=== PATIENT | male | born 1955 | race Caucasian/White ===

== ENCOUNTER 2019-03-26 20:28 | Observation (INO) | payer BC ==
[2019-03-26] MEDS: Aspirin 81 MG Tab.Chew PO ONE (20:49)
--- NOTE | 2019-03-26 20:55 | EDM.PDOC ---
ED HPI GENERAL MEDICAL PROBLEM - General Chief Complaint: General Stated Complaint: bloated, chest tightness Time Seen by Provider: 03/26/19 20:45 Source of Information: Reports: Patient History Limitations: Reports: No Limitations - History of Present Illness INITIAL COMMENTS - FREE TEXT/NARRATIVE: Patient is a 63-year-old gentleman who presents to the emergency department this evening with a complaint of chest pain and shortness of breath. Patient states pain began about 2 p.m. this afternoon. Pain is located midsternal and does not radiate. Pain described as bloating or pressure. Pain has been constant. Patient states that he's had similar symptoms approximately 1-2 times a month for the last 3 months. However this time it seems worse. On the other occasions, it resolved spontaneously in anywhere from 2-4 hours. This time the pain did not resolve. At 1900 today patient took one nitroglycerin sublingual. This did not relieve the pain either. Patient wears CPAP at night with 2 L oxygen flow for sleep apnea. Patient takes losartan for high blood pressure, along with Lasix. 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 He has undergone cardiac catheterization and cardiac stent placed 5 years ago. Patient denies fever, nausea, vomiting, diarrhea, diaphoresis, headache, upper back pain, difficulty swallowing, or lower extremity edema. Onset: Today Onset Date: 03/26/19 Onset Time: 14:00 Duration: Hour(s): Location: Reports: Chest Severity: Moderate Improves with: Reports: None Worsens with: Reports: Other (Lying flat) Associated Symptoms: Reports: Chest Pain, Shortness of Breath. Denies: Cough, cough w sputum, Diaphoresis, Fever/Chills, Nausea/Vomiting Treatments WINDER FIXER: Reports: Nitroglycerin Mid-Sternal Chest Pain Score (Numeric/FACES): 10 - Related Data Allergies Allergy/AdvReac Type Severity Reaction Status Date / Time No Known Drug Allergies Allergy Cannot Verified 03/26/19 20:55 Remember Home Meds: Home Meds Albuterol [Ventolin HFA] 1 puff INH Q4H PRN 03/26/19 [History] Fluticasone/Salmeterol [Advair 250-50 Diskus] 1 inh INH BID 03/26/19 [History] Furosemide 40 mg PO DAILY 03/26/19 [History] Losartan Potassium 25 mg PO DAILY 03/26/19 [History] Nitroglycerin [Nitrostat] 0.4 mg SL ASDIRECTED PRN 03/26/19 [History] Pravastatin [Pravachol] 20 mg PO DAILY 03/26/19 [History] ED ROS GENERAL - Review of Systems Review Of Systems: See Below Constitutional: Reports: No Symptoms HEENT: Reports: No Symptoms Respiratory: Reports: Shortness of Breath Cardiovascular: Reports: Chest Pain Endocrine: Reports: No Symptoms GI/Abdominal: Reports: Abdominal Pain (Intermittent) : Reports: No Symptoms Musculoskeletal: Reports: No Symptoms Skin: Reports: No Symptoms Neurological: Reports: No Symptoms Psychiatric: Reports: No Symptoms Hematologic/Lymphatic: Reports: No Symptoms Immunologic: Reports: No Symptoms ED EXAM, GENERAL - Physical Exam Exam: See Below Exam Limited By: No Limitations General Appearance: Alert, WD/WN, No Apparent Distress Eye Exam: Bilateral Eye: Normal Inspection Nose: Normal Inspection, Normal Mucosa, No Blood Throat/Mouth: Normal Inspection, Normal Oropharynx, No Airway Compromise Head: Atraumatic, Normocephalic Neck: Normal Inspection, Supple Respiratory/Chest: No Respiratory Distress, Decreased Breath Sounds (Bibasilar) Cardiovascular: Regular Rate, Rhythm, No Murmur GI/Abdominal: Normal Bowel Sounds, Non-Tender, No Abnormal Bruit, Other ( Abdominal obesity) Back Exam: Normal Inspection. No: CVA Tenderness (L), CVA Tenderness (R) Extremities: Normal Inspection, No Pedal Edema Neurological: Alert, Oriented, Normal Cognition Psychiatric: Normal Affect, Normal Mood Skin Exam: Warm, Dry, Intact, Normal Color, No Rash Lymphatic: No Adenopathy EKG INTERPRETATION EKG Date: 03/26/19 Time: 21:15 Rate (Beats/Min): 88 [place]: LAD-Left [place] Deviation QRS: RBBB Comparison: NA - No Prior EKG EKG Interpretation Comments: Right bundle-branch block Course - Vital Signs Last Recorded V/S: Last Vital Signs Temp 96.0 F 03/26/19 20:28 Pulse 79 03/26/19 21:51 Resp 28 H 03/26/19 20:28 BP 196/106 H 03/26/19 21:51 Pulse Ox 94 L 03/26/19 20:55 - Orders/Labs/Meds Orders: Active Orders 24 hr Category Date Time Status EKG Documentation Completion [RC] ASDIRECTED Care 03/26/19 20:46 Ordered Chest 1V Frontal [CR] Stat Exams 03/26/19 20:45 Ordered Chest w Cont [CT] Stat Exams 03/26/19 21:57 Ordered Sodium Chloride 0.9% [Normal Saline] 50 ml Med 03/26/19 22:30 Active IV ASDIRECTED EKG 12 Lead [EK] Routine Ther 03/26/19 20:45 Ordered Medication Orders Sodium Chloride (Normal Saline) 50 mls @ 200 mls/min IV ASDIRECTED NIMCO Last Admin: 03/26/19 22:22 Dose: 200 mls/min Labs: Laboratory Tests 03/26/19 03/26/19 03/26/19 Range/Units 20:40 20:40 20:40 WBC 9.44 (5.00-10.00) 10^3/uL RBC 5.17 (4.50-6.00) 10^6/uL Hgb 16.4 (13.0-17.0) g/dL Hct 47.0 (40.0-52.0) % MCV 90.9 (82.0-92.0) fL MCH 31.7 H (27.0-31.0) pg MCHC 34.9 (32.0-36.0) g/dL RDW 12.6 (11.5-14.5) % Plt Count 271 (150-400) 10^3/uL MPV 9.8 (7.4-10.4) fL Immature Gran % (Auto) 0.3 (0.0-5.0) % Neut % (Auto) 85.9 H (50.0-70.0) % Lymph % (Auto) 7.7 L (20.0-40.0) % [place] % (Auto) 5.1 (2.0-8.0) % Eos % (Auto) 0.6 L (1.0-3.0) % Baso % (Auto) 0.4 (0.0-1.0) % Immature Gran # (Auto) 0.03 (0.00-0.50) 10^3/uL Neut # (Auto) 8.10 H (2.50-7.00) 10^3/uL Lymph # (Auto) 0.73 L (1.00-4.00) 10^3/uL [place] # (Auto) 0.48 (0.10-0.80) 10^3/uL Eos # (Auto) 0.06 L (0.10-0.30) 10^3/uL Baso # (Auto) 0.04 (0.00-0.10) 10^3/uL PT 9.0 (8.9-11.4) SEC INR 0.9 (0.9-1.1) APTT 26.4 (23.1-31.3) SEC D-Dimer, Quantitative 158 (<400) ng/mL Sodium 140 (136-145) mmol/L Potassium 4.2 (3.3-5.3) mmol/L Chloride 98 (98-115) mmol/L Carbon Dioxide 29.3 (21.0-32.0) mmol/L Anion Gap 16.9 H (5-15) mmol/L BUN 14 (6-25) mg/dL Creatinine 0.99 (0.51-1.17) mg/dL Est Cr Clr Drug Dosing 82.74 mL/min Estimated GFR (MDRD) > 60 mL/min Glucose 156 H (75 - 99) mg/dL Calcium 9.7 (8.7-10.3) mg/dL Magnesium 1.9 (1.8-2.4) mg/dL Total Bilirubin 0.3 (0.2-1.0) mg/dL AST 26 (15-37) U/L ALT 56 (12-78) U/L Alkaline Phosphatase 129 H (46-116) IU/L CK-MB (CK-2) 1.90 (0.00-4.30) ng/mL Troponin I 0.07 (0.00-0.070) ng/mL B-Natriuretic Peptide 66 (0-100) pg/mL Total Protein 7.6 (6.4-8.2) g/dL Albumin 3.84 (3.00-4.80) g/dL Lipase 60 L (73-393) U/L Meds: Medications Generic Name Dose Route Start Last Admin Trade Name Freq PRN Reason Stop Dose Admin Sodium Chloride 50 mls @ 200 mls/min 03/26/19 22:30 03/26/19 22:22 Normal Saline IV 200 mls/min ASDIRECTED NIMCO Administration Discontinued Medications Generic Name Dose Route Start Last Admin Trade Name Freq PRN Reason Stop Dose Admin Al Hydroxide/Mg Hydroxide 45 ml 03/26/19 22:48 Gi Cocktail PO 03/26/19 22:49 ONETIME ONE Aspirin 324 mg 03/26/19 20:47 03/26/19 20:49 Aspirin PO 03/26/19 20:48 324 mg ONETIME ONE Administration Iopamidol 100 ml 03/26/19 22:17 03/26/19 22:22 Isovue-370 (76%) IV 03/26/19 22:18 100 ml ONETIME ONE Administration Metoclopramide HCl 10 mg 03/26/19 22:35 03/26/19 22:41 Reglan IVPUSH 03/26/19 22:36 10 mg ONETIME ONE Administration Metoprolol Tartrate 5 mg 03/26/19 21:15 03/26/19 21:22 Lopressor IVPUSH 03/26/19 21:16 5 mg ONETIME ONE Administration Metoprolol Tartrate 5 mg 03/26/19 21:40 03/26/19 21:51 Lopressor IVPUSH 03/26/19 21:41 5 mg ONETIME ONE Administration - Radiology Interpretation Free Text/Narrative:: Chest x-ray shows marked cardiomegaly. Concern for thoracic aneurysm. Radiology read for left hemidiaphragm and retrocardiac region obscured and suspicion for infection or pneumonitis. No mention of thoracic aneurysm. CT chest with IV contrast shows normal thoracic aorta with no aneurysm. - Re-Assessments/Exams Free Text/Narrative Re-Assessment/Exam: 03/26/19 22:[address] Flynn, thoracic surgeon at [facility]. Suggested CT with IV contrast for evaluation. Patient afebrile, vital signs stable, blood pressure 168/95 after 2 doses of 5 mg metoprolol IV. Patient states chest discomfort somewhat relieved. Discussed case with Dr. Manish staton. Patient will be admitted for observation and followed. 03/26/19 22:53 Departure - Departure Time of Disposition: 22:54 Disposition: Refer to Observation Condition: Fair Clinical Impression: Shortness of breath Hypertension Qualifiers: Hypertension type: unspecified Qualified Code(s): I10 - Essential (primary) hypertension - Discharge Information Forms: ED Department Discharge - My Orders Last 24 Hours: My Active Orders 03/26/19 20:45 Chest 1V Frontal [CR] Stat EKG 12 Lead [EK] Routine 03/26/19 20:46 EKG Documentation Completion [RC] ASDIRECTED 03/26/19 21:57 Chest w Cont [CT] Stat 03/26/19 22:30 Sodium Chloride 0.9% [Normal Saline] 50 ml IV ASDIRECTED - Assessment/Plan Last 24 Hours: My Active Orders 03/26/19 20:45 Chest 1V Frontal [CR] Stat EKG 12 Lead [EK] Routine 03/26/19 20:46 EKG Documentation Completion [RC] ASDIRECTED 03/26/19 21:57 Chest w Cont [CT] Stat 03/26/19 22:30 Sodium Chloride 0.9% [Normal Saline] 50 ml IV ASDIRECTED Assessment:: Hypertension Plan: Admit observation
[2019-03-26] MEDS: Metoprolol Tartrate 5 MG/5 ML SDV IVPUSH ONE ×2 (21:22→21:51)
[2019-03-26 21:36] LABS: ANION GAP 16.9 mmol/L (5-15); CHLORIDE,CL 98 mmol/L (98-115); SODIUM,NA 140 mmol/L (136-145)
[2019-03-26] MEDS: Sodium Chloride 0.9% 50 ML IV SCH (22:22)
[2019-03-26] MEDS: Iopamidol 755 Mg/ML 100 ML Bottle IV ONE (22:22)
[2019-03-26] MEDS: Metoclopramide 10 MG/2 ML SDV IVPUSH ONE (22:41)
[2019-03-26] MEDS: GI Cocktail 45 ML BOTTLE PO ONE (22:56)
[2019-03-27] MEDS ORDERED: Nitroglycerin 0.4 MG Tab.SL SL PRN (00:32)
[2019-03-27] MEDS ORDERED: Albuterol 8 GM Inhaler INH PRN (00:32)
[2019-03-27] MEDS ORDERED: Labetalol 100 MG/20 ML MDV IVPUSH PRN (00:35)
--- NOTE | 2019-03-27 07:33 | CR ---
[id number] RAD/RAD Chest PA or AP 1V Exam: RAD Chest PA or AP 1V Indication:CHEST PAIN Comparison: No prior imaging for comparison. Discussion: Obscuration of the left hemidiaphragm. Finding is nonspecific but can be seen with small effusion and atelectasis or developing pneumonia. Correlate with site of pain. Cardiomegaly and central vascular congestion. Right lung is clear. Impression: As above. Job Muniz MD 03/27/19 0732 Thank you for allowing us to participate in the care of your patient.
--- NOTE | 2019-03-27 07:40 | CT ---
[id number] CT/CT Chest W IV EXAM: CT Chest W IV CLINICAL DATA: CHEST PAIN COMPARISON: Radiograph from today. FINDINGS: LUNGS: Clear. No pneumothorax or effusion. No endobronchial lesions. HEART AND GREAT VESSELS: Thoracic aorta is normal in caliber. No dissection. Cardiomegaly with coronary artery atherosclerosis. No pericardial effusion. Central vascular congestion. MEDIASTINUM AND LYMPHATICS: No mediastinal or hilar lymphadenopathy. UPPER ABDOMINAL ORGANS: Diffuse hepatic steatosis. Cholelithiasis with a stone at the neck of the gallbladder. Gallbladder is mildly distended with possible mild wall thickening. Other structures are unremarkable. BONES: Scattered changes of spondylosis in the spine. No fracture or osseous lesion. IMPRESSION: Cardiomegaly with coronary artery atherosclerosis. Central vascular congestion, including dilation of the main pulmonary arteries. Diffuse hepatic steatosis and cholelithiasis. Correlate with LFTs to exclude underlying cholecystitis, as there is possible mild wall thickening of the gallbladder. Job Muniz MD 03/27/19 0739 Thank you for allowing us to participate in the care of your patient.
[2019-03-27] MEDS: Furosemide 40 MG Tab PO SCH (08:50)
[2019-03-27] MEDS: Losartan 25 MG Tab PO SCH (08:50)
[2019-03-27] MEDS: Fluticasone/Salmeterol 250-50 MCG Inhalation Powder 14/Diskus INH SCH (08:51)
[2019-03-27] MEDS: Pravastatin 20 MG Tab PO SCH (09:21)
[2019-03-27 11:40] VITALS: BP 128/65; PULSE 79
--- NOTE | 2019-03-27 11:56 | PCM.HP.2 ---
H&P History of Present Illness - General Date of Service: 03/27/19 Admit Problem/Dx: Admission Diagnosis/Problem Admission Diagnosis/Problem Hypertension Source of Information: Patient, Family, Old Records, Provider History Limitations: Reports: No Limitations - History of Present Illness Initial Comments - Free Text/Narative: Mr. Dillard Mid-Sternal Chest Pain Score (Numeric/FACES): 10 - Related Data Allergies/Adverse Reactions: Allergies Allergy/AdvReac Type Severity Reaction Status Date / Time No Known Drug Allergies Allergy Cannot Verified 03/26/19 20:55 Remember Home Medications: Home Meds Albuterol [Ventolin HFA] 1 puff INH Q4H PRN 03/26/19 [History] Fluticasone/Salmeterol [Advair 250-50 Diskus] 1 inh INH BID 03/26/19 [History] Furosemide 40 mg PO DAILY 03/26/19 [History] Losartan Potassium 25 mg PO DAILY 03/26/19 [History] Pravastatin [Pravachol] 20 mg PO DAILY 03/26/19 [History] Aspirin [Low Dose Aspirin EC] 81 mg PO DAILY #90 tablet.dr 03/27/19 [Rx] Nitroglycerin [Nitrostat] 0.4 mg SL ASDIRECTED PRN #25 tab.sl 03/27/19 [Rx] Past Medical History HEENT History: Reports: Cataract, Hard of Hearing Other HEENT History: cataracts on both eyes Cardiovascular History: Reports: Hypertension, [place], SOB on Exertion, Stents Other Cardiovascular History: "small heart attack around 2013 with stent placed " Respiratory History: Reports: COPD, Pneumonia, Recurrent, Sleep Apnea Musculoskeletal History: Reports: Arthritis Endocrine/Metabolic History: Reports: Obesity/BMI 30+ Other Dermatologic History: sores on bilateral arms - Infectious Disease History Infectious Disease History: Reports: Chicken Pox, Measles - Past Surgical History HEENT Surgical History: Reports: Tonsillectomy Social & Family History - Family History Cardiac: Reports: CAD Neurological: Reports: Alzheimers Disease - Tobacco Use Smoking Status *Q: Former Smoker Years of Tobacco use: 45 Used Tobacco, but Quit: No - Caffeine Use Caffeine Use: Reports: Coffee - Alcohol Use Days Per Week of Alcohol Use: 2 Number of Drinks Per Day: 0 Total Drinks Per Week: 0 - Recreational Drug Use Recreational Drug Use: No H&P Review of Systems - Review of Systems: Review Of Systems: See Below General: Denies: Fever, Chills, Malaise, Weakness, Fatigue, Night Sweats, Decreased Appetite HEENT: Denies: Ear Pain, Eye Pain, Sinus Congestion, Sore Throat Pulmonary: Reports: Shortness of Breath (with exertion for several months). Denies: Wheezing, Pleuritic Chest Pain, Cough, Sputum Cardiovascular: Reports: Dyspnea on Exertion. Denies: Chest Pain, Palpitations , Orthopnea, PND, Edema, Syncope, Claudication Gastrointestinal: Reports: Abdominal Pain (epigastric after eating), Hematochezia. Denies: Black Stool, Bloody Stool, Constipation, Diarrhea, Melena , Nausea, Vomiting Genitourinary: Denies: Dysuria, Frequency, Burning, Pain Musculoskeletal: Denies: Neck Pain, Shoulder Pain, Back Pain Skin: Denies: Cyanosis, Jaundice, Rash Psychiatric: Denies: Confusion, Depression, Anxiety Neurological: Denies: Headache, Numbness, Syncope, Tingling Exam - Exam Exam: See Below - Vital Signs Vital Signs: Last Vital Signs Temp 36.1 C 03/27/19 11:37 Pulse 79 03/27/19 11:37 Resp 20 03/27/19 11:37 BP 128/65 03/27/19 11:37 Pulse Ox 91 L 03/27/19 11:37 Weight: 149.884 kg - Exam Physical Exam Comments:: GENERAL: Well-appearing morbidly obese adult white male lying in hospital bed in no acute distress. at bedside. HEENT: Normocephalic, atraumatic. Conjunctiva clear. Nares patent without discharge. Mucous membranes moist, posterior pharynx unremarkable. NECK: Supple, no masses. CV: Regular rate and rhythm, no murmurs, rubs, or gallops. 2+ radial pulses. PULMONARY: Normal effort, clear to auscultation bilaterally, no wheezes, rales, or rhonchi. ABDOMEN: Significantly obese, positive bowel sounds, soft, nontender, nondistended. EXTREMITIES: No edema, cyanosis, or clubbing. MUSCULOSKELETAL: Moves all extremities well. NEUROLOGICAL: No obvious deficits. DERMATOLOGIC: No rashes or suspicious lesions in exposed areas. PSYCHIATRIC: Alert, interactive, appropriate affect. - Patient Data Lab Results Last 24 hrs: Laboratory Results - last 24 hr 03/26/19 03/26/1903/26/19 Range/Units 20:40 20:40 20:40 WBC 9.44 (5.00-10.00) 10^3/uL RBC 5.17 (4.50-6.00) 10^6/uL Hgb 16.4 (13.0-17.0) g/dL Hct 47.0 (40.0-52.0) % MCV 90.9 (82.0-92.0) fL MCH 31.7 H (27.0-31.0) pg MCHC 34.9 (32.0-36.0) g/dL RDW 12.6 (11.5-14.5) % Plt Count 271 (150-400) 10^3/uL MPV 9.8 (7.4-10.4) fL Immature Gran % (Auto) 0.3 (0.0-5.0) % Neut % (Auto) 85.9 H (50.0-70.0) % Lymph % (Auto) 7.7 L (20.0-40.0) % [place] % (Auto) 5.1 (2.0-8.0) % Eos % (Auto) 0.6 L (1.0-3.0) % Baso % (Auto) 0.4 (0.0-1.0) % Immature Gran # (Auto) 0.03 (0.00-0.50) 10^3/uL Neut # (Auto) 8.10 H (2.50-7.00) 10^3/uL Lymph # (Auto) 0.73 L (1.00-4.00) 10^3/uL [place] # (Auto) 0.48 (0.10-0.80) 10^3/uL Eos # (Auto) 0.06 L (0.10-0.30) 10^3/uL Baso # (Auto) 0.04 (0.00-0.10) 10^3/uL PT 9.0 (8.9-11.4) SEC INR 0.9 (0.9-1.1) APTT 26.4 (23.1-31.3) SEC D-Dimer, Quantitative 158 (<400) ng/mL Sodium 140 (136-145) mmol/L Potassium 4.2 (3.3-5.3) mmol/L Chloride 98 (98-115) mmol/L Carbon Dioxide 29.3 (21.0-32.0) mmol/L Anion Gap 16.9 H (5-15) mmol/L BUN 14 (6-25) mg/dL Creatinine 0.99 (0.51-1.17) mg/dL Est Cr Clr Drug Dosing 82.74 mL/min Estimated GFR (MDRD) > 60 mL/min Glucose 156 H (75 - 99) mg/dL Calcium 9.7 (8.7-10.3) mg/dL Magnesium 1.9 (1.8-2.4) mg/dL Total Bilirubin 0.3 (0.2-1.0) mg/dL AST 26 (15-37) U/L ALT 56 (12-78) U/L Alkaline Phosphatase 129 H (46-116) IU/L CK-MB (CK-2) 1.90 (0.00-4.30) ng/mL Troponin I 0.07 (0.00-0.070) ng/mL B-Natriuretic Peptide 66 (0-100) pg/mL Total Protein 7.6 (6.4-8.2) g/dL Albumin 3.84 (3.00-4.80) g/dL Lipase 60 L (73-393) U/L 03/27/19 03/27/19 Range/Units 05:40 08:49 WBC (5.00-10.00) 10^3/uL RBC (4.50-6.00) 10^6/uL Hgb (13.0-17.0) g/dL Hct (40.0-52.0) % MCV (82.0-92.0) fL MCH (27.0-31.0) pg MCHC (32.0-36.0) g/dL RDW (11.5-14.5) % Plt Count (150-400) 10^3/uL MPV (7.4-10.4) fL Immature Gran % (Auto) (0.0-5.0) % Neut % (Auto) (50.0-70.0) % Lymph % (Auto) (20.0-40.0) % [place] % (Auto) (2.0-8.0) % Eos % (Auto) (1.0-3.0) % Baso % (Auto) (0.0-1.0) % Immature Gran # (Auto) (0.00-0.50) 10^3/uL Neut # (Auto) (2.50-7.00) 10^3/uL Lymph # (Auto) (1.00-4.00) 10^3/uL [place] # (Auto) (0.10-0.80) 10^3/uL Eos # (Auto) (0.10-0.30) 10^3/uL Baso # (Auto) (0.00-0.10) 10^3/uL PT (8.9-11.4) SEC INR (0.9-1.1) APTT (23.1-31.3) SEC D-Dimer, Quantitative (<400) ng/mL Sodium (136-145) mmol/L Potassium (3.3-5.3) mmol/L Chloride (98-115) mmol/L Carbon Dioxide (21.0-32.0) mmol/L Anion Gap (5-15) mmol/L BUN (6-25) mg/dL Creatinine (0.51-1.17) mg/dL Est Cr Clr Drug Dosing mL/min Estimated GFR (MDRD) mL/min Glucose (75 - 99) mg/dL Calcium (8.7-10.3) mg/dL Magnesium (1.8-2.4) mg/dL Total Bilirubin (0.2-1.0) mg/dL AST (15-37) U/L ALT (12-78) U/L Alkaline Phosphatase (46-116) IU/L CK-MB (CK-2) (0.00-4.30) ng/mL Troponin I 0.33 H* 0.26 H* (0.00-0.070) ng/mL B-Natriuretic Peptide (0-100) pg/mL Total Protein (6.4-8.2) g/dL Albumin (3.00-4.80) g/dL Lipase (73-393) U/L Result Diagrams: 03/26/19 20:40 03/26/19 20:40 Problem List Initiated/Reviewed/Updated: Yes Orders Last 24hrs: Active Orders 24 hr Category Date Time Status Patient Status [ADT] Routine ADT 03/26/19 22:56 Active Activity as Tolerated [RC] .Routine Care 03/27/19 00:31 Active EKG Documentation Completion [RC] ASDIRECTED Care 03/26/19 20:46 Active EKG Documentation Completion [RC] ASDIRECTED Care 03/27/19 06:33 Active Oxygen Therapy [RC] PRN Care 03/26/19 22:56 Active Telemetry Monitoring [Cardiac Monitoring] [RC] 0300, Care 03/27/19 00:31 Active 0700,1100,1500,1900,2300 VTE/DVT Education [RC] PER UNIT ROUTINE Care 03/26/19 22:56 Active Vital Signs [RC] 0300,0700,1100,1500,1900,2300 Care 03/26/19 22:56 Active Fluticasone/Salmeterol [Advair Diskus 250-50] Med 03/27/19 09:00 Active 1 puff INH BID Furosemide [Lasix] Med 03/27/19 09:00 Active 40 mg PO DAILY Labetalol [Normodyne] Med 03/27/19 00:35 Active 20 mg IVPUSH Q1H PRN Losartan [Cozaar] Med 03/27/19 09:00 Active 50 mg PO DAILY Nitroglycerin [Nitrostat] Med 03/27/19 00:32 Active 0.4 mg SL ASDIRECTED PRN Pravastatin [Pravachol] Med 03/27/19 09:00 Active 20 mg PO DAILY Sodium Chloride 0.9% [Normal Saline] 50 ml Med 03/26/19 22:30 Active IV ASDIRECTED Resuscitation Status Routine Resus Stat 03/26/19 22:56 Ordered Medication Orders Furosemide (Lasix) 40 mg PO DAILY [facility] Last Admin: 03/27/19 08:50 Dose: 40 mg Sodium Chloride (Normal Saline) 50 mls @ 200 mls/min IV ASDIRECTED NIMCO Last Admin: 03/26/19 22:22 Dose: 200 mls/min Labetalol HCl (Normodyne) 20 mg IVPUSH Q1H PRN; Protocol PRN Reason: SBP >170 or DBP >110 Losartan Potassium (Cozaar) 50 mg PO DAILY [facility] Last Admin: 03/27/19 08:50 Dose: 50 mg Nitroglycerin (Nitrostat) 0.4 mg SL ASDIRECTED PRN PRN Reason: Chest Pain Pravastatin Sodium (Pravachol) 20 mg PO DAILY [facility] Last Admin: 03/27/19 09:21 Dose: Fluticasone/Salmeterol (Advair Diskus 250-50) 1 puff INH BID [facility] Last Admin: 03/27/19 08:51 Dose: 1 puff Assessment/Plan Comment:: HPI summary: ED course: Hospital course: Hospitalization problems and plan: # Chronic, stable conditions: # Hospitalization details: # FEN: No IVF. Electrolytes normal. # PPX: N/A given <24hr stay. # Code status: FULL. # Emergency contact: , who was updated at bedside. # Disposition: Admitted to observation status; discharge to home.
--- NOTE | 2019-03-27 12:14 | PCM.DCSUM1 ---
Discharge Summary - Hospital Course Free Text/Narrative:: Date of admission: Date of discharge: Admission diagnoses: Discharge diagnoses: Consultations: Procedures: Hospital course: Discharge and follow-up recommendations: - Discharge to - New medications at discharge: - Follow-up This is a same day admission and discharge. - Discharge Data Discharge Date: 03/27/19 Discharge Disposition: Home, Self-Care 01 Condition: Good - Referral to Home Health Primary Care Physician: PCP Unobtainable - Patient Instructions Diet: Heart Healthy Diet Activity: As Tolerated Notify Provider of: Fever, Increased Pain Other/Special Instructions: You will be called by William Andrade to schedule stress test. - Discharge Plan *PRESCRIPTION DRUG MONITORING PROGRAM REVIEWED*: Not Applicable *COPY OF PRESCRIPTION DRUG MONITORING REPORT IN PATIENT PALLAVI: Not Applicable Prescriptions/Med Rec: Aspirin [Low Dose Aspirin EC] 81 mg PO DAILY #90 tablet. Nitroglycerin [Nitrostat] 0.4 mg SL ASDIRECTED PRN #25 tab.sl PRN Reason: Chest Pain Home Medications: Home Meds Albuterol [Ventolin HFA] 1 puff INH Q4H PRN 03/26/19 [History] Fluticasone/Salmeterol [Advair 250-50 Diskus] 1 inh INH BID 03/26/19 [History] Furosemide 40 mg PO DAILY 03/26/19 [History] Losartan Potassium 25 mg PO DAILY 03/26/19 [History] Pravastatin [Pravachol] 20 mg PO DAILY 03/26/19 [History] Aspirin [Low Dose Aspirin EC] 81 mg PO DAILY #90 tablet. 03/27/19 [Rx] Nitroglycerin [Nitrostat] 0.4 mg SL ASDIRECTED PRN #25 tab.sl 03/27/19 [Rx] Referrals: Tyesha Velazco MD [Physician] - (in 5-10 days for hospital follow-up) - Discharge Summary/Plan Comment DC Time >30 min.: Yes - Patient Data Vitals - Most Recent: Last Vital Signs Temp 36.1 C 03/27/19 11:37 Pulse 79 03/27/19 11:37 Resp 20 03/27/19 11:37 BP 128/65 03/27/19 11:37 Pulse Ox 91 L 03/27/19 11:37 Weight - Most Recent: 149.884 kg I&O - Last 24 hours: Intake & Output 03/26/19 03/27/19 03/27/19 22:59 06:59 14:59 Intake Total 150 Balance 150 Lab Results - Last 24 hrs: Laboratory Results - last 24 hr 03/26/19 03/26/19 03/26/19 Range/Units 20:40 20:40 20:40 WBC 9.44 (5.00-10.00) 10^3/uL RBC 5.17 (4.50-6.00) 10^6/uL Hgb 16.4 (13.0-17.0) g/dL Hct 47.0 (40.0-52.0) % MCV 90.9 (82.0-92.0) fL MCH 31.7 H (27.0-31.0) pg MCHC 34.9 (32.0-36.0) g/dL RDW 12.6 (11.5-14.5) % Plt Count 271 (150-400) 10^3/uL MPV 9.8 (7.4-10.4) fL Immature Gran % (Auto) 0.3 (0.0-5.0) % Neut % (Auto) 85.9 H (50.0-70.0) % Lymph % (Auto) 7.7 L (20.0-40.0) % [place] % (Auto) 5.1 (2.0-8.0) % Eos % (Auto) 0.6 L (1.0-3.0) % Baso % (Auto) 0.4 (0.0-1.0) % Immature Gran # (Auto) 0.03 (0.00-0.50) 10^3/uL Neut # (Auto) 8.10 H (2.50-7.00) 10^3/uL Lymph # (Auto) 0.73 L (1.00-4.00) 10^3/uL [place] # (Auto) 0.48 (0.10-0.80) 10^3/uL Eos # (Auto) 0.06 L (0.10-0.30) 10^3/uL Baso # (Auto) 0.04 (0.00-0.10) 10^3/uL PT 9.0 (8.9-11.4) SEC INR 0.9 (0.9-1.1) APTT 26.4 (23.1-31.3) SEC D-Dimer, Quantitative 158 (<400) ng/mL Sodium 140 (136-145) mmol/L Potassium 4.2 (3.3-5.3) mmol/L Chloride 98 (98-115) mmol/L Carbon Dioxide 29.3 (21.0-32.0) mmol/L Anion Gap 16.9 H (5-15) mmol/L BUN 14 (6-25) mg/dL Creatinine 0.99 (0.51-1.17) mg/dL Est Cr Clr Drug Dosing 82.74 mL/min Estimated GFR (MDRD) > 60 mL/min Glucose 156 H (75 - 99) mg/dL Calcium 9.7 (8.7-10.3) mg/dL Magnesium 1.9 (1.8-2.4) mg/dL Total Bilirubin 0.3 (0.2-1.0) mg/dL AST 26 (15-37) U/L ALT 56 (12-78) U/L Alkaline Phosphatase 129 H (46-116) IU/L CK-MB (CK-2) 1.90 (0.00-4.30) ng/mL Troponin I 0.07 (0.00-0.070) ng/mL B-Natriuretic Peptide 66 (0-100) pg/mL Total Protein 7.6 (6.4-8.2) g/dL Albumin 3.84 (3.00-4.80) g/dL Lipase 60 L (73-393) U/L 03/27/19 03/27/19 Range/Units 05:40 08:49 WBC (5.00-10.00) 10^3/uL RBC (4.50-6.00) 10^6/uL Hgb (13.0-17.0) g/dL Hct (40.0-52.0) % MCV (82.0-92.0) fL MCH (27.0-31.0) pg MCHC (32.0-36.0) g/dL RDW (11.5-14.5) % Plt Count (150-400) 10^3/uL MPV (7.4-10.4) fL Immature Gran % (Auto) (0.0-5.0) % Neut % (Auto) (50.0-70.0) % Lymph % (Auto) (20.0-40.0) % [place] % (Auto) (2.0-8.0) % Eos % (Auto) (1.0-3.0) % Baso % (Auto) (0.0-1.0) % Immature Gran # (Auto) (0.00-0.50) 10^3/uL Neut # (Auto) (2.50-7.00) 10^3/uL Lymph # (Auto) (1.00-4.00) 10^3/uL [place] # (Auto) (0.10-0.80) 10^3/uL Eos # (Auto) (0.10-0.30) 10^3/uL Baso # (Auto) (0.00-0.10) 10^3/uL PT (8.9-11.4) SEC INR (0.9-1.1) APTT (23.1-31.3) SEC D-Dimer, Quantitative (<400) ng/mL Sodium (136-145) mmol/L Potassium (3.3-5.3) mmol/L Chloride (98-115) mmol/L Carbon Dioxide (21.0-32.0) mmol/L Anion Gap (5-15) mmol/L BUN (6-25) mg/dL Creatinine (0.51-1.17) mg/dL Est Cr Clr Drug Dosing mL/min Estimated GFR (MDRD) mL/min Glucose (75 - 99) mg/dL Calcium (8.7-10.3) mg/dL Magnesium (1.8-2.4) mg/dL Total Bilirubin (0.2-1.0) mg/dL AST (15-37) U/L ALT (12-78) U/L Alkaline Phosphatase (46-116) IU/L CK-MB (CK-2) (0.00-4.30) ng/mL Troponin I 0.33 H* 0.26 H* (0.00-0.070) ng/mL B-Natriuretic Peptide (0-100) pg/mL Total Protein (6.4-8.2) g/dL Albumin (3.00-4.80) g/dL Lipase (73-393) U/L Med Orders - Current: Current Medications Furosemide (Lasix) 40 mg PO DAILY [facility] Last Admin: 03/27/19 08:50 Dose: 40 mg Sodium Chloride (Normal Saline) 50 mls @ 200 mls/min IV ASDIRECTED [facility] Last Admin: 03/26/19 22:22 Dose: 200 mls/min Labetalol HCl (Normodyne) 20 mg IVPUSH Q1H PRN; Protocol PRN Reason: SBP >170 or DBP >110 Losartan Potassium (Cozaar) 50 mg PO DAILY [facility] Last Admin: 03/27/19 08:50 Dose: 50 mg Nitroglycerin (Nitrostat) 0.4 mg SL ASDIRECTED PRN PRN Reason: Chest Pain Pravastatin Sodium (Pravachol) 20 mg PO DAILY [facility] Last Admin: 03/27/19 09:21 Dose: Not Given Fluticasone/Salmeterol (Advair Diskus 250-50) 1 puff INH BID [facility] Last Admin: 03/27/19 08:51 Dose: 1 puff Discontinued Medications Al Hydroxide/Mg Hydroxide (Gi Cocktail) 45 ml PO ONETIME ONE Stop: 03/26/19 22:49 Last Admin: 03/26/19 22:56 Dose: 45 ml Albuterol (Ventolin Hfa) 0 gm INH Q4H PRN PRN Reason: Shortness of Breath Stop: 03/27/19 00:36 Aspirin (Aspirin) 324 mg PO ONETIME ONE Stop: 03/26/19 20:48 Last Admin: 03/26/19 20:49 Dose: 324 mg Iopamidol (Isovue-370 (76%)) 100 ml IV ONETIME ONE Stop: 03/26/19 22:18 Last Admin: 03/26/19 22:22 Dose: 100 ml Metoclopramide HCl (Reglan) 10 mg IVPUSH ONETIME ONE Stop: 03/26/19 22:36 Last Admin: 03/26/19 22:41 Dose: 10 mg Metoprolol Tartrate (Lopressor) 5 mg IVPUSH ONETIME ONE Stop: 03/26/19 21:16 Last Admin: 03/26/19 21:22 Dose: 5 mg Metoprolol Tartrate (Lopressor) 5 mg IVPUSH ONETIME ONE Stop: 03/26/19 21:41 Last Admin: 03/26/19 21:51 Dose: 5 mg
== END 2019-03-27 14:15 | disposition home or self-care (01) ==
LOC: KA.ED 20:28 → KA.MS 22:56 → UNDOADMOB 23:03 → KA.MS 23:03
PROVIDERS: ADMIT Physician Assistant Surgical; ATTEND Family Medicine
DX: I10 Essential (primary) hypertension (principal); G47.30 Sleep apnea, unspecified; J44.9 Chronic obstructive pulmonary disease, unspecified; I25.2 Old myocardial infarction; M19.90 Unspecified osteoarthritis, unspecified site; E66.9 Obesity, unspecified; Z68.41 Body mass index [BMI] 40.0-44.9, adult; Z87.891 Personal history of nicotine dependence; Z79.51 Long term (current) use of inhaled steroids; Z79.82 Long term (current) use of aspirin; Z79.899 Other long term (current) drug therapy; Z99.89 Dependence on other enabling machines and devices; Z95.5 Presence of coronary angioplasty implant and graft
CPT/HCPCS: 36415; 71045; 71260; 80053; 82553; 83690; 83735; 83880; 84484; 85025; 85379; 85610; 85730; 93005; 96374; 96375; 99285-25; A9270-GY; G0378; J2765; J3490; J7050; Q9967

== ENCOUNTER 2020-07-29 11:05 | Observation (INO) | payer MEDICARE, BC ==
--- NOTE | 2020-07-29 11:09 | EDM.PDOC ---
ED HPI GENERAL MEDICAL PROBLEM - General Chief Complaint: Cardiovascular Problem Stated Complaint: CHEST TIGHTNESS;BELLY BLOAT Time Seen by Provider: 07/29/20 11:09 Source of Information: Reports: Patient, Family - History of Present Illness INITIAL COMMENTS - FREE TEXT/NARRATIVE: Bryant, 65-year-old male, presents emergency department by private vehicle secondary of abdominal distention and chest pain pressure. States his pain was as high as 7 may be an 8, has not taken any nitroglycerin, and is at least a 5 or 6 now on his arrival to the department. He states his shortness of breath is similar to his chronic status secondary of COPD. Has been using his BiPAP as well has his supplemental oxygen. States his diuretic is apparently working as he states he goes every 10 minutes all the time in the morning until near noon after taking his furosemide. He denies any change in activity or diet. Does speak of an irritated finger (left 4th) that he questions if he has a infection in the nailbed or tip of the finger which will also be reviewed. Denies fever chills, does have occasional cough which she states is minimally productive. Onset: Today, Sudden Duration: Hour(s):, Constant, Getting Worse Location: Reports: Chest, Abdomen Quality: Reports: Pressure Severity: Moderate Improves with: Reports: None Worsens with: Reports: Movement mid-sternal Pain Score (Numeric/FACES): 8 - Related Data Allergies Allergy/AdvReac Type Severity Reaction Status Date / Time No Known Drug Allergies Allergy Cannot Verified 03/26/19 20:55 Remember Home Meds: Home Meds Albuterol [Ventolin HFA] 1 puff INH Q4H PRN 03/26/19 [History] Furosemide 40 mg PO DAILY 03/26/19 [History] Pravastatin [Pravachol] 40 mg PO DAILY 03/26/19 [History] Aspirin [Low Dose Aspirin EC] 81 mg PO DAILY #90 bri. 03/27/19 [Rx] Nitroglycerin [Nitrostat] 0.4 mg SL ASDIRECTED PRN #25 tab.sl 03/27/19 [Rx] Albuterol/Ipratropium [DuoNeb 3.0-0.5 MG/3 ML] 3 ml INH QID PRN 07/29/20 [History] Allopurinol [Zyloprim] 100 mg PO DAILY 07/29/20 [History] Fluticasone Propion/Salmeterol [Wixela 250-50 Inhub] 1 puff IH BID 07/29/20 [History] Losartan [Cozaar] 25 mg PO DAILY 07/29/20 [History] Propylene Glycol/PEG 400/Pf [Systane Hydration Pf 0.4-0.3%] 1 drop EYEBOTH BID 07/29/20 [History] metFORMIN [Glucophage] 1,000 mg PO BIDMEALS 07/29/20 [History] Past Medical History HEENT History: Reports: Cataract, Hard of Hearing Other HEENT History: cataracts on both eyes Cardiovascular History: Reports: Hypertension, HI, SOB on Exertion, Stents, Other (See Below) (Stress test (Nuclear) 04-23-2019 presumed negative. Echo WNL) Other Cardiovascular History: "small heart attack around 2013 with stent placed" Respiratory History: Reports: COPD, Pneumonia, Recurrent, Sleep Apnea Gastrointestinal History: Reports: Chronic Constipation Musculoskeletal History: Reports: Arthritis Endocrine/Metabolic History: Reports: Diabetes, Type II, Obesity/BMI 30+ Other Dermatologic History: sores on bilateral arms - Infectious Disease History Infectious Disease History: Reports: Chicken Pox, Measles - Past Surgical History HEENT Surgical History: Reports: Tonsillectomy - Past Imaging History Past Imaging History: Reports: Angiography (09-06-2014), Cardiac Echo, Stress Testing (04-23-2019), Xray Social & Family History - Family History Cardiac: Reports: CAD Neurological: Reports: Alzheimers Disease - Tobacco Use Tobacco Use Status *Q: Former Tobacco User Tobacco Use Within Last Twelve Months: No, Cigarettes Years of Tobacco use: 40 (plus!!) Smoking Cessation Information Provided To Patient: No - Caffeine Use Caffeine Use: Reports: Coffee - Alcohol Use Alcohol Use History: Yes ED ROS GENERAL - Review of Systems Review Of Systems: Comprehensive ROS is negative, except as noted in HPI. ED EXAM, GENERAL - Physical Exam Exam: See Below Free Text/Narrative:: Alert, oriented, ambulatory to the department. HEENT is negative discharge or deformity. [place] moist mucous membranes are noted. Neck is soft supple I do not appreciate JVD nor bruit. Thorax is very coarse raspy on exhalation with mild tactile fremitus noted throughout posteriorly. Cardiac is S1-S2 a soft grade 1 systolic murmur is heard nonradiating. Abdomen is significantly distended/rotund of which he states he feels somewhat bloated today. This started to progress since yesterday and he notes he has not had a bowel movement now since yesterday. There is +2 edema to the lower extremities. Focused examination left fourth digit shows a significant paronychia infection to the medial nailbed. He states feeling better when seated or standing compared to laying supine. He acknowledges use of his BiPAP machine as well as oxygen supplementation and denies any recent strenuous activity or change in lifestyle, diet, or intake concerns. #1 Interpretation EKG Date: 07/29/20 Time: 11:24 Rhythm: NSR Rate (Beats/Min): 92 [place]: LAD-Left [place] Deviation P-Wave: Present QRS: RBBB ST-T: Depressed QT: Prolonged Comparison: Change From Previous EKG (lateral ischemia noted) Course - Vital Signs Last Recorded V/S: Last Vital Signs Temp 96.7 F L 07/29/20 12:38 Pulse 75 07/29/20 15:00 Resp 22 H 07/29/20 15:00 BP 151/88 H 07/29/20 15:00 Pulse Ox 93 L 07/29/20 15:00 - Orders/Labs/Meds Orders: Active Orders 24 hr Category Date Time Status Admission Status [Patient Status] [ADT] Routine ADT 07/29/20 15:07 Ordered Peripheral IV Care [RC] . DIRECTED Care 07/29/20 11:20 Active Telemetry Monitoring [Cardiac Monitoring] [RC] . Care 07/29/20 15:11 Ordered DIRECTED NPO [Nothing Per Oral Diet] [DIET] Diet 07/29/20 Dinner Ordered Abdomen 1V Upright [CR] Stat Exams 07/29/20 12:54 Stop Req CULTURE BLOOD [BC] Stat Lab 07/29/20 11:35 Received CULTURE BLOOD [BC] Stat Lab 07/29/20 11:50 Received TROPONIN I [CHEM] Stat Lab 07/29/20 16:40 Ordered Sodium Chloride 0.9% @ 75 MLS/HR(1000ml) Med 07/29/20 15:15 Ordered Sodium Chloride 0.9% [Normal Saline] 1,000 ml IV ASDIRECTED Sodium Chloride 0.9% [Normal Saline] 50 ml Med 07/29/20 14:00 Active IV ASDIRECTED Sodium Chloride 0.9% [Saline Flush] Med 07/29/20 11:20 Active 10 ml FLUSH Q8HR PRN Blood Culture x2 Reflex Set [OM.PC] Stat Oth 07/29/20 11:17 Ordered Peripheral IV Insertion Adult [OM.PC] Routine Oth 07/29/20 11:20 Ordered Code Status [Resuscitation Status] Stat Resus Stat 07/29/20 15:11 Ordered EKG 12 Lead [EK] Urgent Ther 07/29/20 11:19 Stop Req Medication Orders Sodium Chloride (Normal Saline) 50 mls @ 200 mls/min IV ASDIRECTED NIMCO Last Admin: 07/29/20 13:59 Dose: 200 mls/min Documented by: ENDECAY Sodium Chloride (Normal Saline) 1,000 mls @ 75 mls/hr IV ASDIRECTED NIMCO Sodium Chloride (Sodium Chloride 0.9% 10 Ml Syringe) 10 ml FLUSH Q8HR PRN PRN Reason: keep vein open Labs: Laboratory Tests 07/29/20 07/29/20 07/29/20 Range/Units 11:18 11:25 11:25 WBC 12.25 H (5.00-10.00) 10^3/uL RBC 5.23 (4.50-6.00) 10^6/uL Hgb 16.2 (13.0-17.0) g/dL Hct 46.7 (40.0-52.0) % MCV 89.3 (82.0-92.0) fL MCH 31.0 (27.0-31.0) pg MCHC 34.7 (32.0-36.0) g/dL RDW 12.9 (11.5-14.5) % Plt Count 287 (150-400) 10^3/uL MPV 9.6 (7.4-10.4) fL Immature Gran % (Auto) 0.3 (0.0-5.0) % Neut % (Auto) 89.8 H (50.0-70.0) % Lymph % (Auto) 4.9 L (20.0-40.0) % [place] % (Auto) 4.7 (2.0-8.0) % Eos % (Auto) 0.1 L (1.0-3.0) % Baso % (Auto) 0.2 (0.0-1.0) % Neut # (Auto) 10.99 H (2.50-7.00) 10^3/uL Lymph # (Auto) 0.60 L (1.00-4.00) 10^3/uL [place] # (Auto) 0.58 (0.10-0.80) 10^3/uL Eos # (Auto) 0.01 L (0.10-0.30) 10^3/uL Baso # (Auto) 0.03 (0.00-0.10) 10^3/uL Immature Gran # (Auto) 0.04 (0.00-0.50) 10^3/uL APTT (22.8-31.4) SEC D-Dimer, Quantitative 434 H (<400) ng/mL Sodium 137 (136-145) mmol/L Potassium 3.8 (3.5-5.1) mmol/L Chloride 95 L (98-107) mmol/L Carbon Dioxide 29.5 (21.0-32.0) mmol/L Anion Gap 16.3 H (5-15) mmol/L BUN 11 (7-18) mg/dL Creatinine 0.93 (0.51-1.17) mg/dL Est Cr Clr Drug Dosing 85.76 mL/min Estimated GFR (MDRD) > 60 mL/min Glucose 217 H (70-140) mg/dL Lactic Acid (0.4-2.0) mmol/L Calcium 9.1 (8.7-10.3) mg/dL Total Bilirubin 1.8 H (0.2-1.0) mg/dL AST 193 H (15-37) U/L ALT 240 H (14-63) U/L Alkaline Phosphatase 148 H (46-116) U/L Creatine Kinase 83 (26-276) U/L CK-MB (CK-2) 1.53 (0.00-3.60) ng/mL Troponin I < 0.017 (0.000-0.056) ng/mL B-Natriuretic Peptide 139 H (0-100) pg/mL Total Protein 7.6 (6.4-8.2) g/dL Albumin 3.78 (3.40-5.00) g/dL SARS CoV-2 RNA Rapid LYNDA (NEGATIVE) 07/29/20 07/29/20 07/29/20 Range/Units 11:25 11:35 15:05 WBC (5.00-10.00) 10^3/uL RBC (4.50-6.00) 10^6/uL Hgb (13.0-17.0) g/dL Hct (40.0-52.0) % MCV (82.0-92.0) fL MCH (27.0-31.0) pg MCHC (32.0-36.0) g/dL RDW (11.5-14.5) % Plt Count (150-400) 10^3/uL MPV (7.4-10.4) fL Immature Gran % (Auto) (0.0-5.0) % Neut % (Auto) (50.0-70.0) % Lymph % (Auto) (20.0-40.0) % [place] % (Auto) (2.0-8.0) % Eos % (Auto) (1.0-3.0) % Baso % (Auto) (0.0-1.0) % Neut # (Auto) (2.50-7.00) 10^3/uL Lymph # (Auto) (1.00-4.00) 10^3/uL [place] # (Auto) (0.10-0.80) 10^3/uL Eos # (Auto) (0.10-0.30) 10^3/uL Baso # (Auto) (0.00-0.10) 10^3/uL Immature Gran # (Auto) (0.00-0.50) 10^3/uL APTT 29.4 (22.8-31.4) SEC D-Dimer, Quantitative (<400) ng/mL Sodium (136-145) mmol/L Potassium (3.5-5.1) mmol/L Chloride (98-107) mmol/L Carbon Dioxide (21.0-32.0) mmol/L Anion Gap (5-15) mmol/L BUN (7-18) mg/dL Creatinine (0.51-1.17) mg/dL Est Cr Clr Drug Dosing mL/min Estimated GFR (MDRD) mL/min Glucose (70-140) mg/dL Lactic Acid 2.0 (0.4-2.0) mmol/L Calcium (8.7-10.3) mg/dL Total Bilirubin (0.2-1.0) mg/dL AST (15-37) U/L ALT (14-63) U/L Alkaline Phosphatase (46-116) U/L Creatine Kinase (26-276) U/L CK-MB (CK-2) (0.00-3.60) ng/mL Troponin I (0.000-0.056) ng/mL B-Natriuretic Peptide (0-100) pg/mL Total Protein (6.4-8.2) g/dL Albumin (3.40-5.00) g/dL SARS CoV-2 RNA Rapid LYNDA Negative (NEGATIVE) Meds: Medications Generic Name Dose Route Start Last Admin Trade Name Freq PRN Reason Stop Dose Admin Sodium Chloride 50 mls @ 200 mls/min 07/29/20 14:00 07/29/20 13:59 Normal Saline IV 200 mls/min ASDIRECTED NIMCO Administration Sodium Chloride 1,000 mls @ 75 mls/hr 07/29/20 15:15 Normal Saline IV ASDIRECTED NIMCO Sodium Chloride 10 ml 07/29/20 11:20 Sodium Chloride 0.9% 10 Ml Syringe FLUSH Q8HR PRN keep vein open Discontinued Medications Generic Name Dose Route Start Last Admin Trade Name Freq PRN Reason Stop Dose Admin Aspirin 324 mg 07/29/20 11:20 07/29/20 11:41 Aspirin 81 Mg Tab.Chew PO 07/29/20 11:21 324 mg ONETIME ONE Administration Al Hydroxide/Mg Hydroxide 30 0 ml 07/29/20 12:31 07/29/20 12:37 ml/ Lidocaine HCl 15 ml PO 07/29/20 12:32 45 ml ONETIME ONE Administration Nitroglycerin/Dextrose 50 mg in 250 mls @ 3 mls/hr 07/29/20 12:15 Nitroglycerin 50 Mg/D5w 250 Ml IV TITRATE NIMCO 10 MCG/MIN Nitroglycerin/Dextrose 50 mg in 250 mls @ 3 mls/hr 07/29/20 12:28 Nitroglycerin 50 Mg/D5w 250 Ml IV TITRATE NIMCO Protocol 10 MCG/MIN Iopamidol 100 ml 07/29/20 13:57 07/29/20 13:59 Iopamidol 755 Mg/Ml 100 Ml Bottle IV 07/29/20 13:58 100 ml ONETIME ONE Administration Metoprolol Tartrate 25 mg 07/29/20 12:03 07/29/20 12:23 Metoprolol Tartrate 25 Mg Tab PO 07/29/20 12:04 25 mg ONETIME ONE Administration Nitroglycerin 0.4 mg 07/29/20 11:21 07/29/20 11:56 Nitroglycerin 0.4 Mg Tab.Sl SL 0.4 mg Q5M PRN Administration Chest Pain - Radiology Interpretation Free Text/Narrative:: Chest x-ray shows cardiomegaly with mild CHF appearance. Right lung increased general, likely chronic opacity appearance in general with costophrenic angle present. Blunting of Left angle noted. COPD history. Over read pending. - Re-Assessments/Exams Free Text/Narrative Re-Assessment/Exam: 07/29/20 11:47 Pain of a 7 down to a 5 possibly during examination remaining mildly hypertensive. EKG showing lateral ischemia in comparative change to his 2019 EKG. Baby aspirin and nitroglycerin given. Pain continues at a 5, nitro repeated. 07/29/20 12:01 Pain at this time is now down to a 4 with continued pressure feeling and improvement seated versus laying supine. Consideration for nitro drip and heparin drip. 07/29/20 12:10 Discussed with Bryant and his spouse that he has never conducted a advanced directive or living well. She states he had been given paperwork but had never completed it. Secondary of the issues occurring discussion on CODE STATUS was held with him preferring to be code level 1 with transfer to [facility] if necessitated. 07/29/20 12:36 Pain continues to have discomfort @4, but states she feels his is more epigastric abdominal at this time with no chest discomfort pressure. GI cocktail will be implemented. 07/29/20 13:06 States he feels slightly better after GI cocktail with minimal chest pressure, epigastric discomfort slightly improved. Feels more gassy [place] at this time. CTA of the chest to rule out PE will be performed as well as flat and upright of the abdomen. 07/29/20 13:39 Returns from radiology at this time. States his pain is now at a 3 and is predominantly to the lower abdomen. Denies any chest pain and minimal if any epigastric pain that he experienced earlier. Free Text/Narrative Re-Assessment/Exam: 07/29/20 14:23 Continued improvement with minimal abdominal discomfort at this time upon return from CT report results. Discussed with Dr. Sidhu the findings and since he is improved possibility of awaiting a CT of the abdomen to see if it progresses would be advised. If concern continues oral contrast would be sufficient. We will discuss with [place] provider Jackson Vasquez. Free Text/Narrative Re-Assessment/Exam: 07/29/20 15:05 Discussion via phone with Jackson Vasquez nurse practitioner [facility]. Jackson agrees with his cardiac risk factors as well as the findings on x-ray for ileus versus small bowel obstruction that he should be placed in observation status at this time with telemetry and remaining n.p.o. with normal saline at 70 mils per hour. We will rule out HI and and reassess ileus versus small bowel obstruction. Cardiac enzymes will be repeated at 1700 hrs. Departure - Departure Time of Disposition: 15:15 Disposition: Refer to Observation Condition: Fair Clinical Impression: Hypertensive heart disease, Abdominal pain, acute, epigastric, Acute paronychia of finger of left hand, Elevated d-dimer, Shortness of breath, Partial obstruction of small intestine Chest pain Qualifiers: Chest pain type: chest pain due to myocardial ischemia Ischemic chest pain type: unstable angina pectoris Qualified Code(s): I20.0 - Unstable angina Leukocytosis Qualifiers: Leukocytosis type: unspecified Qualified Code(s): D72.829 - Elevated white blood cell count, unspecified CHF (congestive heart failure) Qualifiers: Heart failure type: systolic Heart failure chronicity: acute on chronic Qualified Code(s): I50.23 - Acute on chronic systolic (congestive) heart failure Hypertension Qualifiers: Hypertension type: essential hypertension Qualified Code(s): I10 - Essential (primary) hypertension - Discharge Information *PRESCRIPTION DRUG MONITORING PROGRAM REVIEWED*: Not Applicable *COPY OF PRESCRIPTION DRUG MONITORING REPORT IN PATIENT PALLAVI: Not Applicable Referrals: Tyesha Velazco MD [Primary Care Provider] - Jackson Vasquez NP [Nurse Practitioner] - Forms: ED Department Discharge Additional Instructions: Will be placed in observation status for rule out HI along with NPO status for sm bowel obstruction versus Ileus. Discussed radiology opinion of waiting for resolution versus oral only contrast if abd/pelvis is needed to be reviewed with imaging today. Sepsis Event Note (ED) - Focused Exam Vital Signs: Vital Signs Temp Pulse Pulse Resp BP BP BP 07/29/20 15:00 75 22 H 151/88 H 07/29/20 14:40 77 19 160/89 H 07/29/20 14:14 82 21 H 161/86 H 07/29/20 14:03 86 17 161/81 H 07/29/20 12:38 96.7 F L 88 24 H 139/81 07/29/20 12:23 102 H 138/79 07/29/20 12:15 102 H 138/79 07/29/20 12:01 113 H 17 131/67 07/29/20 11:56 156/94 H 07/29/20 11:50 106 H 20 151/86 H 151/86 H 07/29/20 11:39 103 H 20 171/94 H 171/94 H 07/29/20 11:15 97.5 F 84 20 161/90 H Pulse Ox 07/29/20 15:00 93 L 07/29/20 14:40 95 07/29/20 14:14 94 L 07/29/20 14:03 93 L 07/29/20 12:38 93 L 07/29/20 12:23 07/29/20 12:15 07/29/20 12:01 92 L 07/29/20 11:56 07/29/20 11:50 90 L 07/29/20 11:39 91 L 07/29/20 11:15 92 L ED Communication - ED Communication Date/Time Date: 07/29/20 Time Called: 15:00 - Discussed Case With (1) Discussed Case With (1): Admitting Provider Person/s Notified (1): jackson vasquez - Conversation Summary Admitting Provider Agreed to Patient's Admission: Yes - Problem List & Annotations (1) Chest pain SNOMED Code(s): 40782921 Code(s): R07.9 - CHEST PAIN, UNSPECIFIED Status: Acute Priority: High Current Visit: Yes Qualifiers: Chest pain type: chest pain due to myocardial ischemia Ischemic chest pain type: unstable angina pectoris Qualified Code(s): I20.0 - Unstable angina (2) CHF (congestive heart failure) SNOMED Code(s): 76922732 Code(s): I50.9 - HEART FAILURE, UNSPECIFIED Status: Chronic Priority: Medium Current Visit: Yes Qualifiers: Heart failure type: systolic Heart failure chronicity: acute on chronic Qualified Code(s): I50.23 - Acute on chronic systolic (congestive) heart failure (3) Leukocytosis SNOMED Code(s): 697618889, 839133775 Code(s): D72.829 - ELEVATED WHITE BLOOD CELL COUNT, UNSPECIFIED Status: Acute Priority: Medium Current Visit: Yes Qualifiers: Leukocytosis type: unspecified Qualified Code(s): D72.829 - Elevated white blood cell count, unspecified (4) Acute paronychia of finger of left hand SNOMED Code(s): 86162857 Code(s): L03.012 - CELLULITIS OF LEFT FINGER Status: Acute Priority: High Current Visit: Yes (5) Hypertension SNOMED Code(s): 71135111 Code(s): I10 - ESSENTIAL (PRIMARY) HYPERTENSION Status: Chronic Priority: Medium Current Visit: Yes Qualifiers: Hypertension type: essential hypertension Qualified Code(s): I10 - Essential (primary) hypertension (6) Shortness of breath SNOMED Code(s): 335721898 Code(s): R06.02 - SHORTNESS OF BREATH Status: Chronic Priority: High Current Visit: Yes (7) Abdominal pain, acute, epigastric SNOMED Code(s): 51611581, 55122785 Code(s): R10.13 - EPIGASTRIC PAIN Status: Acute Priority: High Current Visit: Yes (8) Elevated d-dimer SNOMED Code(s): 130184722 Code(s): R79.89 - OTHER SPECIFIED ABNORMAL FINDINGS OF BLOOD CHEMISTRY Status: Acute Priority: High Current Visit: Yes (9) Partial obstruction of small intestine SNOMED Code(s): 783934827 Code(s): K56.600 - PARTIAL INTESTINAL OBSTRUCTION, UNSPECIFIED TO CAUSE Status: Acute Priority: High Current Visit: Yes Annotation/Comment:: versus ileus (10) COVID-19 ruled out by laboratory testing SNOMED Code(s): 861416685974985511, 689056459402319295 Code(s): Z20.822 - CONTACT WITH AND (SUSPECTED) EXPOSURE TO COVID-19 Status: Acute Priority: High Current Visit: Yes - Problem List Review Problem List Initiated/Reviewed/Updated: Yes - My Orders Last 24 Hours: My Active Orders 07/29/20 11:17 Blood Culture x2 Reflex Set [OM.PC] Stat 07/29/20 11:19 EKG 12 Lead [EK] Urgent 07/29/20 11:20 Peripheral IV Care [RC] . DIRECTED Sodium Chloride 0.9% [Saline Flush] 10 ml FLUSH Q8HR PRN Peripheral IV Insertion Adult [OM.PC] Routine 07/29/20 11:35 CULTURE BLOOD [BC] Stat 07/29/20 11:50 CULTURE BLOOD [BC] Stat 07/29/20 12:54 Abdomen 1V Upright [CR] Stat 07/29/20 14:00 Sodium Chloride 0.9% [Normal Saline] 50 ml IV ASDIRECTED 07/29/20 15:07 Admission Status [Patient Status] [ADT] Routine 07/29/20 15:11 Telemetry Monitoring [Cardiac Monitoring] [RC] . DIRECTED Code Status [Resuscitation Status] Stat 07/29/20 15:15 Sodium Chloride 0.9% @ 75 MLS/HR(1000ml) Sodium Chloride 0.9% [Normal Saline] 1,000 ml IV ASDIRECTED 07/29/20 16:40 TROPONIN I [CHEM] Stat 07/29/20 Dinner NPO [Nothing Per Oral Diet] [DIET] - Assessment/Plan Last 24 Hours: My Active Orders 07/29/20 11:17 Blood Culture x2 Reflex Set [OM.PC] Stat 07/29/20 11:19 EKG 12 Lead [EK] Urgent 07/29/20 11:20 Peripheral IV Care [RC] . DIRECTED Sodium Chloride 0.9% [Saline Flush] 10 ml FLUSH Q8HR PRN Peripheral IV Insertion Adult [OM.PC] Routine 07/29/20 11:35 CULTURE BLOOD [BC] Stat 07/29/20 11:50 CULTURE BLOOD [BC] Stat 07/29/20 12:54 Abdomen 1V Upright [CR] Stat 07/29/20 14:00 Sodium Chloride 0.9% [Normal Saline] 50 ml IV ASDIRECTED 07/29/20 15:07 Admission Status [Patient Status] [ADT] Routine 07/29/20 15:11 Telemetry Monitoring [Cardiac Monitoring] [RC] . DIRECTED Code Status [Resuscitation Status] Stat 07/29/20 15:15 Sodium Chloride 0.9% @ 75 MLS/HR(1000ml) Sodium Chloride 0.9% [Normal Saline] 1,000 ml IV ASDIRECTED 07/29/20 16:40 TROPONIN I [CHEM] Stat 07/29/20 Dinner NPO [Nothing Per Oral Diet] [DIET] Plan: Will be placed in observation status for rule out HI along with NPO status for sm bowel obstruction versus Ileus. Discussed radiology opinion of waiting for resolution versus oral only contrast if abd/pelvis is needed to be reviewed with imaging today.
[2020-07-29] MEDS ORDERED: Aspirin 81 MG Tab.Chew PO ONE (11:20)
[2020-07-29] MEDS ORDERED: Sodium Chloride 0.9% 10 ML Syringe FLUSH PRN (11:20)
[2020-07-29] MEDS: Nitroglycerin 0.4 MG Tab.SL SL PRN ×3 (11:39→11:56)
--- NOTE | 2020-07-29 11:55 | CR ---
[id number] RAD/RAD Chest PA or AP 1V EXAM: FRONTAL CHEST INDICATION: CHEST PAIN. COMPARISON: March 26, 2019. DISCUSSION: The lungs are mildly hypoinflated. Cardiomegaly with borderline central vascular congestion. No effusions. IMPRESSION: 1. Cardiomegaly with borderline central vascular congestion. Blake Macario MD 07/29/20 1154 Thank you for allowing us to participate in the care of your patient.
[2020-07-29] MEDS ORDERED: Metoprolol Tartrate 25 MG Tab PO ONE (12:03)
[2020-07-29 12:21] LABS: ANION GAP 16.3 mmol/L (5-15); CHLORIDE,CL 95 mmol/L (98-107); SODIUM,NA 137 mmol/L (136-145)
[2020-07-29] MEDS ORDERED: Alum Hydrox/Mag Hydrox/Simeth 30 ML, Lidocaine 2% 15 ML PO ONE ×2 (12:31)
[2020-07-29] MEDS ORDERED: Iopamidol 755 Mg/ML 100 ML Bottle IV ONE (13:57)
[2020-07-29] MEDS ORDERED: Sodium Chloride 0.9% 50 ML IV SCH (14:00)
--- NOTE | 2020-07-29 14:10 | CT ---
[id number] CT/CTA Chest Exam: CTA Chest Clinical Data: ELEVATED D-DIMER COMPARISON: CORRELATION IS MADE WITH MARCH 26, 2019 FINDINGS: There are no pulmonary emboli. 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
--- NOTE | 2020-07-29 14:14 | CR ---
[id number] RAD/RAD Abdomen Upright Exam: RAD Abdomen Upright Clinical Data: ABDOMINAL DISTENTION COMPARISON: NO PREVIOUS SIMILAR EXAM IS AVAILABLE FINDINGS: There is moderate bowel distention There is no free air There are air-fluid levels involving the small bowel IMPRESSION: CONCERN FOR PARTIAL SMALL BOWEL OBSTRUCTION VERSUS ILEUS CONTRAST CT ABDOMEN PELVIS WITH IV HELPFUL WOULD BE HELPFUL Arvind Centeno MD 07/29/20 4536 Thank you for allowing us to participate in the care of your patient.
[2020-07-29] MEDS: Sodium Chloride 0.9% 1,000 ML IV SCH (16:43)
[2020-07-29] MEDS ORDERED: Lidocaine 2% 100 MG/5 ML Syringe IVPUSH PRN (19:10)
[2020-07-29] MEDS ORDERED: Atropine 0.1 MG/ML 10 ML Syringe IVPUSH PRN (19:10)
[2020-07-29] MEDS ORDERED: EPINEPHrine 1:10,000 1 MG/10 ML Syringe IVPUSH PRN (19:10)
[2020-07-29] MEDS ORDERED: Nitroglycerin 0.4 MG Tab.SL SL PRN (19:10)
[2020-07-29] MEDS ORDERED: Albuterol 8 GM Inhaler INH PRN (19:49)
[2020-07-29] MEDS ORDERED: Albuterol/Ipratropium 3.0-0.5 MG/3 ML Neb Soln INH PRN (19:49)
[2020-07-29] MEDS ORDERED: PEG EYEBOTH SCH (21:00)
[2020-07-29] MEDS ORDERED: [UNRECOGNIZED DRUG - OTHER] EYEBOTH SCH (21:00)
[2020-07-29] MEDS ORDERED: PROPYLENE GLYCOL EYEBOTH SCH (21:00)
[2020-07-30] MEDS: Sodium Chloride 0.9% 1,000 ML IV SCH ×2 (06:06→19:39)
[2020-07-30 07:58] LABS: ANION GAP 15.2 mmol/L (5-15); CHLORIDE,CL 100 mmol/L (98-107); SODIUM,NA 141 mmol/L (136-145)
[2020-07-30] MEDS: LOSARTAN 25 MG PO SCH (08:51)
[2020-07-30] MEDS: SALMETEROL INH SCH ×2 (08:52→20:07)
[2020-07-30] MEDS: FLUTICASONE PROP INH SCH ×2 (08:52→20:07)
[2020-07-30] MEDS: Allopurinol 100 MG Tab **PTOM PO SCH (08:52)
[2020-07-30] MEDS: Furosemide 40 MG Tab**PT OWN PO SCH (08:52)
[2020-07-30] MEDS ORDERED: Losartan 25 MG Tab PO SCH (09:00)
[2020-07-30] MEDS ORDERED: Furosemide 40 MG Tab**PT OWN PO SCH (09:00)
[2020-07-30] MEDS ORDERED: Allopurinol 100 MG Tab **PTOM PO SCH (09:00)
--- NOTE | 2020-07-30 12:27 | PCM.HP.2 ---
H&P History of Present Illness - General Date of Service: 07/30/20 Admit Problem/Dx: Admission Diagnosis/Problem Admission Diagnosis/Problem Cardiac chest pain Source of Information: Patient, Old Records, Provider, RN Bilateral Upper Abdomen Pain Score (Numeric/FACES): 3 mid-sternal Pain Score (Numeric/FACES): 8 - Related Data Allergies/Adverse Reactions: Allergies Allergy/AdvReac Type Severity Reaction Status Date / Time No Known Drug Allergies Allergy Cannot Verified 07/29/20 15:46 Remember Home Medications: Home Meds Albuterol [Ventolin HFA] 1 puff INH Q4H PRN 03/26/19 [History] Furosemide 40 mg PO DAILY 03/26/19 [History] Pravastatin [Pravachol] 40 mg PO DAILY 03/26/19 [History] Aspirin [Low Dose Aspirin EC] 81 mg PO DAILY #90 tablet.dr 03/27/19 [Rx] Nitroglycerin [Nitrostat] 0.4 mg SL ASDIRECTED PRN #25 tab.sl 03/27/19 [Rx] Albuterol/Ipratropium [DuoNeb 3.0-0.5 MG/3 ML] 3 ml INH QID PRN 07/29/20 [History] Allopurinol [Zyloprim] 100 mg PO DAILY 07/29/20 [History] Fluticasone Propion/Salmeterol [[place]ela 250-50 Inhub] 1 puff IH BID 07/29/20 [History] Losartan [Cozaar] 25 mg PO DAILY 07/29/20 [History] Propylene Glycol/PEG 400/Pf [Systane Hydration Pf 0.4-0.3%] 1 drop EYEBOTH DIRECTED PRN 07/29/20 [History] metFORMIN [Glucophage] 1,000 mg PO BIDMEALS 07/29/20 [History] Past Medical History HEENT History: Reports: Cataract, Hard of Hearing Other HEENT History: cataracts on both eyes Cardiovascular History: Reports: Heart Failure, Hypertension, NV, SOB on Exertion, Stents, Other (See Below) Other Cardiovascular History: "small heart attack around 2013 with stent placed" Respiratory History: Reports: COPD, Pneumonia, Recurrent, Sleep Apnea, Other (See Below) Other Respiratory History: wears BiPAP at night Gastrointestinal History: Reports: Chronic Constipation Musculoskeletal History: Reports: Arthritis Endocrine/Metabolic History: Reports: Diabetes, Type II, Obesity/BMI 30+ Dermatologic History: Reports: Seborrheic Dermatitis, Other (See Below) Other Dermatologic History: sores on bilateral arms - Infectious Disease History Infectious Disease History: Reports: Chicken Pox, Measles - Past Surgical History HEENT Surgical History: Reports: Tonsillectomy - Past Imaging History Past Imaging History: Reports: Angiography (09-06-2014), Cardiac Echo, Stress Testing (04-23-2019), Xray Social & Family History - Family History Family Medical History: No Pertinent Family History Cardiac: Reports: CAD Neurological: Reports: Alzheimers Disease - Tobacco Use Tobacco Use Status *Q: Former Tobacco User Years of Tobacco use: 40 (plus!!) Used Tobacco, but Quit: Yes Month/Year Tobacco Last Used: 1969 - Caffeine Use Caffeine Use: Reports: Coffee - Recreational Drug Use Recreational Drug Use: No H&P Review of Systems - Review of Systems: Review Of Systems: See Below General: Reports: No Symptoms HEENT: Reports: No Symptoms Pulmonary: Denies: Shortness of Breath, Wheezing, Pleuritic Chest Pain, Cough, Sputum Cardiovascular: Denies: Chest Pain, PND, Edema, Blood Pressure Problem Gastrointestinal: Reports: Distension, Flatus (slight this am). Denies: Abdomi nal Pain, Nausea, Vomiting Genitourinary: Reports: No Symptoms Musculoskeletal: Reports: No Symptoms Skin: Reports: Dryness Psychiatric: Denies: Confusion Neurological: Denies: Confusion Hematologic/Lymphatic: Reports: No Symptoms Immunologic: Reports: No Symptoms Exam - Exam Exam: See Below - Vital Signs Vital Signs: Last Vital Signs Temp 97.9 F 07/30/20 11:00 Pulse 100 07/30/20 11:00 Resp 24 H 07/30/20 11:00 BP 127/60 07/30/20 11:00 Pulse Ox 91 L 07/30/20 11:00 Weight: 370 lb - Exam Quality Assessment: DVT Prophylaxis (will start today) HEENT: Mucosa Moist & [place] Neck: No: Lymphadenopathy Lungs: Clear to Auscultation, Normal Respiratory Effort Cardiovascular: Regular Rate, Regular Rhythm GI/Abdominal Exam: Non-Tender, Other (slight normo pitched Bowel tones this am, Less taut, no distention from baseline) Extremities: No Pedal Edema Peripheral Pulses: 2+: Radial (R), Femoral (L) Skin: Other (Left fourth digit circumferential erythematous, pus noted lateral nail, acute. ) Neurological: Cranial Nerves Intact Neuro Extensive - Mental Status: Alert, Oriented x3 Neuro Extensive - Motor, Sensory, Reflexes: CN II-XII Intact Psychiatric: Alert, Normal Affect, Normal Mood - Patient Data Lab Results Last 24 hrs: Laboratory Results - last 24 hr 07/29/20 07/29/20 07/29/20 Range/Units 11:18 11:25 11:25 WBC (5.00-10.00) 10^3/uL RBC (4.50-6.00) 10^6/uL Hgb (13.0-17.0) g/dL Hct (40.0-52.0) % MCV (82.0-92.0) fL MCH (27.0-31.0) pg MCHC (32.0-36.0) g/dL RDW (11.5-14.5) % Plt Count (150-400) 10^3/uL MPV (7.4-10.4) fL Immature Gran % (Auto) (0.0-5.0) % Neut % (Auto) (50.0-70.0) % Lymph % (Auto) (20.0-40.0) % [place] % (Auto) (2.0-8.0) % Eos % (Auto) (1.0-3.0) % Baso % (Auto) (0.0-1.0) % Neut # (Auto) (2.50-7.00) 10^3/uL Lymph # (Auto) (1.00-4.00) 10^3/uL [place] # (Auto) (0.10-0.80) 10^3/uL Eos # (Auto) (0.10-0.30) 10^3/uL Baso # (Auto) (0.00-0.10) 10^3/uL Immature Gran # (Auto) (0.00-0.50) 10^3/uL APTT 29.4 (22.8-31.4) SEC D-Dimer, Quantitative 434 H (<400) ng/mL Sodium 137 (136-145) mmol/L Potassium 3.8 (3.5-5.1) mmol/L Chloride 95 L (98-107) mmol/L Carbon Dioxide 29.5 (21.0-32.0) mmol/L Anion Gap 16.3 H (5-15) mmol/L BUN 11 (7-18) mg/dL Creatinine 0.93 (0.51-1.17) mg/dL Est Cr Clr Drug Dosing 85.76 mL/min Estimated GFR (MDRD) > 60 mL/min Glucose 217 H (70-140) mg/dL Lactic Acid (0.4-2.0) mmol/L Calcium 9.1 (8.7-10.3) mg/dL Total Bilirubin 1.8 H (0.2-1.0) mg/dL AST 193 H (15-37) U/L ALT 240 H (14-63) U/L Alkaline Phosphatase 148 H (46-116) U/L Creatine Kinase 83 (26-276) U/L CK-MB (CK-2) 1.53 (0.00-3.60) ng/mL Troponin I < 0.017 (0.000-0.056) ng/mL B-Natriuretic Peptide 139 H (0-100) pg/mL Total Protein 7.6 (6.4-8.2) g/dL Albumin 3.78 (3.40-5.00) g/dL SARS CoV-2 RNA Rapid LYNDA (NEGATIVE) 07/29/20 07/29/20 07/29/20 Range/Units 11:35 15:05 16:35 WBC (5.00-10.00) 10^3/uL RBC (4.50-6.00) 10^6/uL Hgb (13.0-17.0) g/dL Hct (40.0-52.0) % MCV (82.0-92.0) fL MCH (27.0-31.0) pg MCHC (32.0-36.0) g/dL RDW (11.5-14.5) % Plt Count (150-400) 10^3/uL MPV (7.4-10.4) fL Immature Gran % (Auto) (0.0-5.0) % Neut % (Auto) (50.0-70.0) % Lymph % (Auto) (20.0-40.0) % [place] % (Auto) (2.0-8.0) % Eos % (Auto) (1.0-3.0) % Baso % (Auto) (0.0-1.0) % Neut # (Auto) (2.50-7.00) 10^3/uL Lymph # (Auto) (1.00-4.00) 10^3/uL [place] # (Auto) (0.10-0.80) 10^3/uL Eos # (Auto) (0.10-0.30) 10^3/uL Baso # (Auto) (0.00-0.10) 10^3/uL Immature Gran # (Auto) (0.00-0.50) 10^3/uL APTT (22.8-31.4) SEC D-Dimer, Quantitative (<400) ng/mL Sodium (136-145) mmol/L Potassium (3.5-5.1) mmol/L Chloride (98-107) mmol/L Carbon Dioxide (21.0-32.0) mmol/L Anion Gap (5-15) mmol/L BUN (7-18) mg/dL Creatinine (0.51-1.17) mg/dL Est Cr Clr Drug Dosing mL/min Estimated GFR (MDRD) mL/min Glucose (70-140) mg/dL Lactic Acid 2.0 (0.4-2.0) mmol/L Calcium (8.7-10.3) mg/dL Total Bilirubin (0.2-1.0) mg/dL AST (15-37) U/L ALT (14-63) U/L Alkaline Phosphatase (46-116) U/L Creatine Kinase (26-276) U/L CK-MB (CK-2) (0.00-3.60) ng/mL Troponin I < 0.017 (0.000-0.056) ng/mL B-Natriuretic Peptide (0-100) pg/mL Total Protein (6.4-8.2) g/dL Albumin (3.40-5.00) g/dL SARS CoV-2 RNA Rapid LYNDA Negative (NEGATIVE) 07/30/20 07/30/20 Range/Units 07:35 07:35 WBC 12.57 H (5.00-10.00) 10^3/uL RBC 4.92 (4.50-6.00) 10^6/uL Hgb 15.1 (13.0-17.0) g/dL Hct 45.4 (40.0-52.0) % MCV 92.3 H D (82.0-92.0) fL MCH 30.7 (27.0-31.0) pg MCHC 33.3 (32.0-36.0) g/dL RDW 13.5 (11.5-14.5) % Plt Count 265 (150-400) 10^3/uL MPV 9.2 (7.4-10.4) fL Immature Gran % (Auto) 0.2 (0.0-5.0) % Neut % (Auto) 85.9 H (50.0-70.0) % Lymph % (Auto) 6.9 L (20.0-40.0) % [place] % (Auto) 6.4 (2.0-8.0) % Eos % (Auto) 0.3 L (1.0-3.0) % Baso % (Auto) 0.3 (0.0-1.0) % Neut # (Auto) 10.78 H (2.50-7.00) 10^3/uL Lymph # (Auto) 0.87 L (1.00-4.00) 10^3/uL [place] # (Auto) 0.81 H (0.10-0.80) 10^3/uL Eos # (Auto) 0.04 L (0.10-0.30) 10^3/uL Baso # (Auto) 0.04 (0.00-0.10) 10^3/uL Immature Gran # (Auto) 0.03 (0.00-0.50) 10^3/uL APTT (22.8-31.4) SEC D-Dimer, Quantitative (<400) ng/mL Sodium 141 (136-145) mmol/L Potassium 3.9 (3.5-5.1) mmol/L Chloride 100 (98-107) mmol/L Carbon Dioxide 29.7 (21.0-32.0) mmol/L Anion Gap 15.2 H (5-15) mmol/L BUN 12 (7-18) mg/dL Creatinine 0.90 (0.51-1.17) mg/dL Est Cr Clr Drug Dosing 88.62 mL/min Estimated GFR (MDRD) > 60 mL/min Glucose 152 H (70-140) mg/dL Lactic Acid (0.4-2.0) mmol/L Calcium 8.2 L (8.7-10.3) mg/dL Total Bilirubin 0.9 (0.2-1.0) mg/dL AST 82 H (15-37) U/L ALT 206 H (14-63) U/L Alkaline Phosphatase 125 H (46-116) U/L Creatine Kinase (26-276) U/L CK-MB (CK-2) (0.00-3.60) ng/mL Troponin I (0.000-0.056) ng/mL B-Natriuretic Peptide (0-100) pg/mL Total Protein 7.0 (6.4-8.2) g/dL Albumin 3.38 L (3.40-5.00) g/dL SARS CoV-2 RNA Rapid LYNDA (NEGATIVE) Result Diagrams: 07/30/20 07:35 07/30/20 07:35 [place] Results Last 24 hrs: Microbiology 07/29/20 11:35 Aerobic Blood Culture - Preliminary Blood - Venous NO GROWTH AFTER 1 DAY Anaerobic Blood Culture - Preliminary NO GROWTH AFTER 1 DAY Sepsis Event Note - Evaluation Sepsis Screening Result: No Definite Risk - Focused Exam Vital Signs: Vital Signs Temp Temp Pulse Resp BP BP BP 07/30/20 11:00 97.9 F 100 24 H 127/60 07/30/20 08:51 132/76 07/30/20 06:48 96.8 F L 91 16 135/76 07/30/20 03:00 96 F L 73 16 128/62 Pulse Ox 07/30/20 11:00 91 L 07/30/20 08:51 07/30/20 06:48 92 L 07/30/20 03:00 89 L Problem List Initiated/Reviewed/Updated: Yes Orders Last 24hrs: Active Orders 24 hr Category Date Time Status Admission Status [Patient Status] [ADT] Routine ADT 07/29/20 15:07 Active Peripheral IV Care [RC] Care 07/29/20 11:20 Active RT Aerosol Therapy [RC] ASDIRECTED Care 07/29/20 19:52 Active Telemetry Monitoring [Cardiac Monitoring] [RC] ,, Care 07/29/20 15:11 Active ,15,19,23 NPO [Nothing Per Oral Diet] [DIET] Diet 07/29/20 Dinner Active Abdomen 1V Upright [CR] Stat Exams 07/29/20 12:54 Stop Req CULTURE BLOOD [BC] Stat Lab 07/29/20 11:35 Results CULTURE BLOOD [BC] Stat Lab 07/29/20 11:50 Received Albuterol [Ventolin HFA] Med 07/29/20 19:49 Active 0 gm INH Q4H PRN Albuterol/Ipratropium [DuoNeb 3.0-0.5 MG/3 ML] Med 07/29/20 19:49 Active 3 ml INH QIDRT PRN Atropine [Atropine 0.1 MG/ML] Med 07/29/20 19:10 Active See Dose Instructions IVPUSH ASDIRECTED PRN EPINEPHrine [EPINEPHrine 1:10,000] Med 07/29/20 19:10 Active 1 mg IVPUSH ASDIRECTED PRN Furosemide [Lasix] Med 07/30/20 09:00 Active 40 mg PO DAILY Lidocaine 2% [Xylocaine 2%] Med 07/29/20 19:10 Active See Dose Instructions IVPUSH ASDIRECTED PRN Losartan [Cozaar] Med 07/30/20 09:00 Active 25 mg PO DAILY Nitroglycerin [Nitrostat] Med 07/29/20 19:10 Active 0.4 mg SL ASDIRECTED PRN Patient's Own Medication [Ptom] Med 07/30/20 09:00 Active 0 each INH BID Sodium Chloride 0.9% [Normal Saline] 1,000 ml Med 07/29/20 15:15 Active IV ASDIRECTED Sodium Chloride 0.9% [Normal Saline] 50 ml Med 07/29/20 14:00 Active IV ASDIRECTED Sodium Chloride 0.9% [Saline Flush] Med 07/29/20 11:20 Active 10 ml FLUSH Q8HR PRN allopurinoL [Zyloprim] Med 07/30/20 09:00 Active 100 mg PO DAILY Blood Culture x2 Reflex Set [OM.PC] Stat Oth 07/29/20 11:17 Ordered Peripheral IV Insertion Adult [OM.PC] Routine Oth 07/29/20 11:20 Ordered Code Status [Resuscitation Status] Stat Resus Stat 07/29/20 15:11 Ordered EKG 12 Lead [EK] Stat Ther 07/30/20 06:30 Ordered EKG 12 Lead [EK] Urgent Ther 07/29/20 11:19 Stop Req Medication Orders Albuterol (Albuterol 8 Gm Inhaler) 0 gm INH Q4H PRN PRN Reason: Shortness of Breath Albuterol/Ipratropium (Albuterol/Ipratropium 3.0-0.5 Mg/3 Ml Neb Soln) 3 ml INH QIDRT PRN PRN Reason: Shortness of Breath Allopurinol (Allopurinol 100 Mg Tab Ptom) 100 mg PO DAILY [facility] Last Admin: 07/30/20 08:52 Dose: 100 mg Documented by: MARCELINO Atropine Sulfate (Atropine 0.1 Mg/Ml 10 Ml Syringe) 0 mg IVPUSH ASDIRECTED PRN PRN Reason: Heart. Epinephrine HCl (Epinephrine 1:10,000 1 Mg/10 Ml Syringe) 1 mg IVPUSH ASDIRECTED PRN PRN Reason: Heart. Furosemide (Furosemide 40 Mg TabPt Own) 40 mg PO DAILY [facility] Last Admin: 07/30/20 08:52 Dose: 40 mg Documented by: MARCELINO Sodium Chloride (Normal Saline) 50 mls @ 200 mls/min IV ASDIRECTED [facility] Last Admin: 07/29/20 13:59 Dose: 200 mls/min Documented by: ENOC Sodium Chloride (Normal Saline) 1,000 mls @ 75 mls/hr IV ASDIRECTED [facility] Last Admin: 07/30/20 06:06 Dose: 75 mls/hr Documented by: Infusion: 07/30/20 06:03 Dose: 75 mls/hr Documented by: Admin: 07/29/20 16:43 Dose: 75 mls/hr Documented by: OLE Lidocaine HCl (Lidocaine 2% 100 Mg/5 Ml Syringe) 0 mg IVPUSH ASDIRECTED PRN PRN Reason: Heart. Losartan Potassium (Losartan 25 Mg TabPtom) 25 mg PO DAILY [facility] Last Admin: 07/30/20 08:51 Dose: 25 mg Documented by: MARCELINO Nitroglycerin (Nitroglycerin 0.4 Mg Tab.Sl) 0.4 mg SL ASDIRECTED PRN PRN Reason: Heart. Fluticasone Prop/Salmeterol Diskus 250/50 0 each INH BID [facility] Last Admin: 07/30/20 08:52 Dose: 1 each Documented by: MARCELINO Sodium Chloride (Sodium Chloride 0.9% 10 Ml Syringe) 10 ml FLUSH Q8HR PRN PRN Reason: keep vein open Assessment/Plan Comment:: History of present illness Mr Dillard is a 65-year-old patient that was admitted into observation from the ED for rule out NV. He presented to the ED via POV c/o abdominal distention and chest pain pressure. He stated his max chest pain that day day was 8/10 down to ~6 upon ED arrival. Patient with high CV risk factors including obesity, HF, CAD, Ischemic cardiomyopathy, HTN, T2DM, HLD however all fairly controlled, he is to see f/u with cardiology this month however he has not made the appointment to date. 2014--PCI-LAD with ABY placed--on ASA ED course; Neg initial Trop Elevated D-dimer, frequent chest CTA negative for PE Abd; moderate bowel distention with no free air, free fluid levels involving small bowel with concern for partial SBO versus ileus EKG; RBBB, LAD, SR with first-degree AV block with occasional PVC, only changes T wave abnormality lateral lead Elevated liver transaminases, with T. bili 1.8 Hospital course 07/30/2020; patient was admitted to OBS status with telemetry, serial troponins negative, chest pains, he was kept n.p.o. with IV fluids to monitor for small bowel obstruction. He started passing some mild flatus this morning, denies any chest pain or shortness of breath, though there was no overnight calls/concerns, early this am nurses reported run of sinus tachycardia with PVCs--patient unaware with no complaints of palpitations or shortness of breath or chest pain. Repeat ECG improved with no longer lateral lead ischemia from ED's initial presentation EKG. Patient does desire to go home today ECG, Dtd July 30, 2020 SR first-degree AV block, premature supraventricular complexes occasional PVCs, LAD, RBBB, inferior infarct, age undetermined, QTc 495, [place] interval 0.22 Primary hospital problems --Small bowel obstruction/ileus, NPO --Paronynia, Acute L 4th digit, will I&D today, PO abx, soaks --Elevated liver transaminases, trending down, total bili now normal. AST/ALT ratio 1:2 --R/O NV, neg cardio biomarkers Chronic problems --CAD, ASA --Ischemic cardiomyopathy --HLD, statin Mixed hyperlipidemia --Essential hypertension, ARB, no BB due to severe COPD --T2DM, holding Metformin, ADA diet --Chronic respiratory failure --PARAMJIT, home CPAP/BiPAPwit supplemental oxygen. --COPD, severe --HFpE/ Cor pulmonale, chronic diastolic, lasix --Pulmonary hypertension --Obesity, morbid, BMI 40.0-49.9 --Elevated uric acid in blood, allopurinol Disposition/overall plan --Continue OBS status as appears SBO/ileus may be alleviating. Consider p.o. ONLY contrast this p.m. if needed--especially in light of the patient having contrast within 24 hours --Keep NPO now, possibly clear liquids this p.m. to be determined by patient's clinical status and or need for further imaging. --Since NPO, can resume diuretics despite IV fluids --I&D of Paronynia--add abx. Cx sent, Warm soaks entire hand QID --Can remove Telemetry status - Mortality Measure Prognosis:: Good
[2020-07-30] MEDS ORDERED: Nitroglycerin 0.4 MG Tab.SL SL PRN (12:42)
--- NOTE | 2020-07-30 13:05 | PCM.PRNOTE ---
- Free Text/Narrative Note: Left fourth digit left hand incision and drainage to Paronynia, finger was cleansed with ChloraPrep, 0.25 cc lidocaine without epinephrine used. Lateral nail bed incision was made copious amounts of purulent discharge, dressing applied. Culture sent to lab and Gram stain. Given the extent of erythematous will place on oral antibiotics. Tolerated procedure very well had no pain
[2020-07-30] MEDS: Cephalexin 250 MG Cap PO SCH ×3 (14:45→23:36)
[2020-07-30] MEDS: Metoclopramide 10 MG/2 ML SDV IVPUSH SCH ×2 (15:50→23:36)
[2020-07-31] MEDS: Cephalexin 250 MG Cap PO SCH ×2 (05:28→11:08)
[2020-07-31 07:48] LABS: ANION GAP 13.1 mmol/L (5-15); CHLORIDE,CL 101 mmol/L (98-107); SODIUM,NA 139 mmol/L (136-145)
[2020-07-31] MEDS: Metoclopramide 10 MG/2 ML SDV IVPUSH SCH (08:53)
[2020-07-31] MEDS: Furosemide 40 MG Tab**PT OWN PO SCH (08:54)
[2020-07-31] MEDS: LOSARTAN 25 MG PO SCH (08:54)
[2020-07-31] MEDS: FLUTICASONE PROP INH SCH (08:55)
[2020-07-31] MEDS: Allopurinol 100 MG Tab **PTOM PO SCH (08:55)
[2020-07-31] MEDS: SALMETEROL INH SCH (08:55)
[2020-07-31] MEDS: Sodium Chloride 0.9% 1,000 ML IV SCH (08:59)
[2020-07-31] MEDS ORDERED: Aspirin 81 MG Tab.EC PO SCH (09:00)
[2020-07-31] MEDS ORDERED: Cephalexin 250 MG Cap PO ONE (12:49)
--- NOTE | 2020-08-01 09:44 | PCM.DCSUM1 ---
Discharge Summary - Hospital Course Diagnosis: Stroke: No - Discharge Data Discharge Date: 07/31/20 Discharge Disposition: Home, Self-Care 01 Condition: Good - Referral to Home Health Primary Care Physician: Tyesha Velazco MD - Patient Instructions Diet: Heart Healthy Diet, Drink 8-10+ Glasses/Day, Diabetic Diet Diet, Other: Soft foods the next day or 2 only Activity: As Tolerated Driving: May Drive Today Showering/Bathing: May Shower Notify Provider of: Fever, Increased Pain, Nausea and/or Vomiting - Discharge Plan *PRESCRIPTION DRUG MONITORING PROGRAM REVIEWED*: Not Applicable *COPY OF PRESCRIPTION DRUG MONITORING REPORT IN PATIENT PALLAVI: Not Applicable Prescriptions/Med Rec: cephALEXin [Keflex] 500 mg PO Q6HR #12 cap Home Medications: Home Meds Albuterol [Ventolin HFA] 1 puff INH Q4H PRN 03/26/19 [History] Furosemide 40 mg PO DAILY 03/26/19 [History] Pravastatin [Pravachol] 40 mg PO DAILY 03/26/19 [History] Aspirin [Low Dose Aspirin EC] 81 mg PO DAILY #90 tablet.dr 03/27/19 [Rx] Nitroglycerin [Nitrostat] 0.4 mg SL ASDIRECTED PRN #25 tab.sl 03/27/19 [Rx] Albuterol/Ipratropium [DuoNeb 3.0-0.5 MG/3 ML] 3 ml INH QID PRN 07/29/20 [History] Allopurinol [Zyloprim] 100 mg PO DAILY 07/29/20 [History] Fluticasone Propion/Salmeterol [Wixela 250-50 Inhub] 1 puff IH BID 07/29/20 [History] Losartan [Cozaar] 25 mg PO DAILY 07/29/20 [History] Propylene Glycol/PEG 400/Pf [Systane Hydration Pf 0.4-0.3%] 1 drop EYEBOTH ASDIRECTED PRN 07/29/20 [History] metFORMIN [Glucophage] 1,000 mg PO BIDMEALS 07/29/20 [History] cephALEXin [Keflex] 500 mg PO Q6HR #12 cap 07/31/20 [Rx] Referrals: Jackson Vasquez [employer] [Nurse Practitioner] - (Call clinic tomorrow morning at [phone] for hospital follow-up appointment. Saturday or ) Tyesha Velazco MD [Primary Care Provider] - - Discharge Summary/Plan Comment DC Time >30 min.: Yes Discharge Summary/Plan Comment: Final diagnosis --Small bowel obstruction/ileus, clinically resolved --Paronynia, Acute L 4th digit, status post I&D today, --Elevated liver transaminases, trending down, --R/O CO, neg cardio biomarkers, ACS has been ruled out Chronic problems --CAD, ASA --Ischemic cardiomyopathy --HLD, statin Mixed hyperlipidemia --Essential hypertension, ARB, no BB due to severe COPD --T2DM, holding Metformin, ADA diet --Chronic respiratory failure --PARAMJIT, home CPAP/BiPAPwit supplemental oxygen. --COPD, severe --HFpE/ Cor pulmonale, chronic diastolic, lasix --Pulmonary hypertension --Obesity, morbid, BMI 40.0-49.9 --Elevated uric acid in blood, allopurinol History Summary Mr Dillard is a 65-year-old patient that was admitted into observation from the ED for rule out CO. He presented to the ED via POV c/o abdominal distention and chest pain pressure. He stated his max chest pain that day day was 8/10 down to ~6 upon ED arrival. Patient with high CV risk factors including obesity, HF, CAD, Ischemic cardiomyopathy, HTN, T2DM, HLD however all fairly controlled, he is to see f/u with cardiology this month however he has not made the appointment to date. 2014--PCI-LAD with ABY placed--on ASA ED course; Neg initial Trop Elevated D-dimer, frequent chest CTA negative for PE Abd; moderate bowel distention with no free air, free fluid levels involving small bowel with concern for partial SBO versus ileus EKG; RBBB, LAD, SR with first-degree AV block with occasional PVC, only changes T wave abnormality lateral lead Elevated liver transaminases, with T. bili 1.8 Hospital course 07/30/2020; patient was admitted to OBS status with telemetry, serial troponins negative, chest pains, he was kept n.p.o. with IV fluids to monitor for small bowel obstruction. He started passing some mild flatus this morning, denies any chest pain or shortness of breath, though there was no overnight calls/concerns, early this am nurses reported run of sinus tachycardia with PVCs--patient unaware with no complaints of palpitations or shortness of breath or chest pain. Repeat ECG improved with no longer lateral lead ischemia from ED's initial presentation EKG. Patient does desire to go home today 07/31/2020; that morning on rounds patient was alert and oriented no abdominal pain, hungry, no nausea no vomiting, adequate amount of flatus and gas passing. No bowel movement. Desires to go home, liver transaminases continue to trend favorably. He was tolerating his advance diet. He walked the halls, had no shortness of breath no chest pain no abdominal pain. He was given IV Reglan 10 mg every 8 hours without deleterious effects. No abdominal CT was warranted as he clinically improved. His Metformin was restarted, he was well hydrated and his Lasix was restarted ECG, Dtd July 30, 2020 SR first-degree AV block, premature supraventricular complexes occasional PVCs, LAD, RBBB, inferior infarct, age undetermined, QTc 495, NH interval 0.22 Medication changes/adjustments upon discharge --Keflex, 500 mg p.o. every 6 hours, 2/2 Paronynia --Glycerin suppository to stimulate bowels Disposition/overall plan --Discharge from hospital with assurances of soft diet stay well-hydrated. Report any fever, chest or abdominal pain. Glycerin suppository --He will follow-up [place] [facility] within 2 to 3 days --Soak left hand BID - General Info Functional Status: Reports: Pain Controlled, Tolerating Diet. Denies: New Symptoms - Review of Systems General: Reports: Appetite (good appetite). Denies: Fever, Weakness, Fatigue, Malaise, Chills Pulmonary: Reports: No Symptoms Cardiovascular: Denies: Chest Pain, Dyspnea on Exertion, Orthopnea, Edema Gastrointestinal: Reports: Constipation, Flatus. Denies: Abdominal Pain, Decreased Appetite, Diarrhea, Nausea, Vomiting Genitourinary: Reports: No Symptoms Skin: Reports: Pallor Neurological: Denies: Confusion, Dizziness Psychiatric: Reports: No Symptoms - Patient Data Vitals - Most Recent: Last Vital Signs Temp 96.5 F L 07/31/20 11:12 Pulse 99 07/31/20 11:12 Resp 21 H 07/31/20 11:12 BP 126/66 07/31/20 11:12 Pulse Ox 94 L 07/31/20 11:12 Weight - Most Recent: 370 lb KALEE Results - Last 24 hrs: Microbiology 07/29/20 11:50 Aerobic Blood Culture - Preliminary Blood - Venous - Lab Draw NO GROWTH AFTER 2 DAYS Anaerobic Blood Culture - Preliminary NO GROWTH AFTER 2 DAYS 07/29/20 11:35 Aerobic Blood Culture - Preliminary Blood - Venous NO GROWTH AFTER 2 DAYS Anaerobic Blood Culture - Preliminary NO GROWTH AFTER 2 DAYS Med Orders - Current: Current Medications Discontinued Medications Albuterol (Albuterol 8 Gm Inhaler) 0 gm INH Q4H PRN PRN Reason: Shortness of Breath Albuterol/Ipratropium (Albuterol/Ipratropium 3.0-0.5 Mg/3 Ml Neb Soln) 3 ml INH QIDRT PRN PRN Reason: Shortness of Breath Allopurinol (Allopurinol 100 Mg Tab Ptom) 100 mg PO DAILY [facility] Allopurinol (Allopurinol 100 Mg Tab Ptom) 100 mg PO DAILY [facility] Last Admin: 07/31/20 08:55 Dose: 100 mg Documented by: Aspirin (Aspirin 81 Mg Tab.Chew) 324 mg PO ONETIME ONE Stop: 07/29/20 11:21 Last Admin: 07/29/20 11:41 Dose: 324 mg Documented by: Aspirin (Aspirin 81 Mg Tab.Ec) 81 mg PO DAILY [facility] Last Admin: 07/31/20 08:53 Dose: 81 mg Documented by: Atropine Sulfate (Atropine 0.1 Mg/Ml 10 Ml Syringe) 0 mg IVPUSH ASDIRECTED PRN PRN Reason: Heart. Cephalexin (Cephalexin 250 Mg Cap) 500 mg PO Q6HR [facility] Last Admin: 07/31/20 11:08 Dose: 500 mg Documented by: Cephalexin (Cephalexin 250 Mg Cap) 1,500 mg PO ONETIME ONE Stop: 07/31/20 12:50 Al Hydroxide/Mg Hydroxide 30 (ml/ Lidocaine HCl 15 ml) 0 ml PO ONETIME ONE Stop: 07/29/20 12:32 Last Admin: 07/29/20 12:37 Dose: 45 ml Documented by: Epinephrine HCl (Epinephrine 1:10,000 1 Mg/10 Ml Syringe) 1 mg IVPUSH ASDIRECTED PRN PRN Reason: Heart. Furosemide (Furosemide 40 Mg TabPt Own) 40 mg PO DAILY [facility] Furosemide (Furosemide 40 Mg TabPt Own) 40 mg PO DAILY [facility] Last Admin: 07/31/20 08:54 Dose: 40 mg Documented by: Nitroglycerin/Dextrose (Nitroglycerin 50 Mg/D5w 250 Ml) 50 mg in 250 mls @ 3 mls/hr IV TITRATE [facility] Nitroglycerin/Dextrose (Nitroglycerin 50 Mg/D5w 250 Ml) 50 mg in 250 mls @ 3 mls/hr IV TITRATE [facility]; Protocol Sodium Chloride (Normal Saline) 50 mls @ 200 mls/min IV ASDIRECTED [facility] Last Admin: 07/29/20 13:59 Dose: 200 mls/min Documented by: Sodium Chloride (Normal Saline) 1,000 mls @ 75 mls/hr IV ASDIRECTED [facility] Last Admin: 07/31/20 08:59 Dose: 75 mls/hr Documented by: Iopamidol (Iopamidol 755 Mg/Ml 100 Ml Bottle) 100 ml IV ONETIME ONE Stop: 07/29/20 13:58 Last Admin: 07/29/20 13:59 Dose: 100 ml Documented by: Lidocaine HCl (Lidocaine 2% 100 Mg/5 Ml Syringe) 0 mg IVPUSH ASDIRECTED PRN PRN Reason: Heart. Losartan Potassium (Losartan 25 Mg Tab) 25 mg PO DAILY [facility] Losartan Potassium (Losartan 25 Mg TabPtom) 25 mg PO DAILY [facility] Last Admin: 07/31/20 08:54 Dose: 25 mg Documented by: Metoclopramide HCl (Metoclopramide 10 Mg/2 Ml Sdv) 10 mg IVPUSH Q8H [facility] Last Admin: 07/31/20 08:53 Dose: 10 mg Documented by: Metoprolol Tartrate (Metoprolol Tartrate 25 Mg Tab) 25 mg PO ONETIME ONE Stop: 07/29/20 12:04 Last Admin: 07/29/20 12:23 Dose: 25 mg Documented by: Nitroglycerin (Nitroglycerin 0.4 Mg Tab.Sl) 0.4 mg SL Q5M PRN PRN Reason: Chest Pain Last Admin: 07/29/20 11:56 Dose: 0.4 mg Documented by: Nitroglycerin (Nitroglycerin 0.4 Mg Tab.Sl) 0.4 mg SL ASDIRECTED PRN PRN Reason: Heart. Nitroglycerin (Nitroglycerin 0.4 Mg Tab.Sl) 0.4 mg SL ASDIRECTED PRN PRN Reason: Chest Pain Non-Formulary Medication (Propylene Glycol/Peg 400/Pf [Systane Hydration Pf 0.4- 0.3%]) 1 drop EYEBOTH BID [facility] Last Admin: 07/30/20 10:28 Dose: Not Given Documented by: Fluticasone Prop/Salmeterol Diskus 250/50 0 each INH BID [facility] Last Admin: 07/31/20 08:55 Dose: 1 each Documented by: Sodium Chloride (Sodium Chloride 0.9% 10 Ml Syringe) 10 ml FLUSH Q8HR PRN PRN Reason: keep vein open Last Admin: 07/30/20 23:37 Dose: 10 ml Documented by: - Exam General: Reports: Alert, Oriented, Cooperative, No Acute Distress Lungs: Reports: Clear to Auscultation, Normal Respiratory Effort Cardiovascular: Reports: Regular Rate, Regular Rhythm GI/Abdominal Exam: Soft, Other (good bowel sounds throughout, slightly low). No : Distended, Guarding, Rigid, Rebound, Tender, Abnormal Bowel Sounds (Male) Exam: Deferred Back Exam: Denies: CVA Tenderness (L), CVA Tenderness (R) Extremities: No Pedal Edema Skin: Reports: Other (Erythremia left ring finger improving since incision and drainage) Wound/Incisions: Reports: No Drainage, Erythema Improving Neurological: Reports: No New Focal Deficit Psy/Mental Status: Reports: Alert, Normal Affect, Normal Mood
== END 2020-07-31 15:21 | disposition home or self-care (01) ==
LOC: KA.ED 11:05 → KA.MS 15:07
PROVIDERS: ADMIT Nurse Practitioner Family; ATTEND Nurse Practitioner Family
DX: K56.609 Unspecified intestinal obstruction, unspecified as to partial versus complete obstruction (principal); K56.7 Ileus, unspecified; L03.012 Cellulitis of left finger; R74.01 Elevation of levels of liver transaminase levels; I25.10 Atherosclerotic heart disease of native coronary artery without angina pectoris; E78.2 Mixed hyperlipidemia; I25.5 Ischemic cardiomyopathy; J44.9 Chronic obstructive pulmonary disease, unspecified; I27.20 Pulmonary hypertension, unspecified; J96.10 Chronic respiratory failure, unspecified whether with hypoxia or hypercapnia; Z99.81 Dependence on supplemental oxygen; G47.33 Obstructive sleep apnea (adult) (pediatric); I27.81 Cor pulmonale (chronic); E66.01 Morbid (severe) obesity due to excess calories; Z68.43 Body mass index [BMI] 50.0-59.9, adult; E79.0 Hyperuricemia without signs of inflammatory arthritis and tophaceous disease; I11.0 Hypertensive heart disease with heart failure; I50.32 Chronic diastolic (congestive) heart failure; I25.2 Old myocardial infarction; Z20.822 Contact with and (suspected) exposure to COVID-19; Z79.82 Long term (current) use of aspirin; Z79.84 Long term (current) use of oral hypoglycemic drugs; Z79.899 Other long term (current) drug therapy; Z87.891 Personal history of nicotine dependence; Z95.5 Presence of coronary angioplasty implant and graft; Z98.890 Other specified postprocedural states
CPT/HCPCS: 36415; 71045; 71275; 74021; 80053; 82550; 82553; 83605; 83880; 84484; 85025; 85379; 85730; 87040; 87070; 87147; 87186; 87205; 93005; 96374; 96376; 99284; 99285-25; A9270-GY; G0378; J2765; J7030; Q9967; U0002